=== PATIENT | male | born 1960 | race Caucasian/White ===

== ENCOUNTER 2019-08-20 09:59 | Outpatient (CLI) | payer OTHER, SELFPAY | END 2019-08-20 10:00 | disposition home or self-care (01) | LOC: CHSLAB 10:03 | PROVIDERS: PCP Internal Medicine; Visit Provider Specialist | DX: C44.329 Squamous cell carcinoma of skin of other parts of face (principal) | CPT/HCPCS: 88305 ==

== ENCOUNTER 2019-10-10 10:13 | Outpatient (CLI) | payer OTHER, SELFPAY ==
--- NOTE | 2019-10-10 11:00 | NEURO_ITS ---
Patient Number: [id number] Impression: # Complains of numbness of thumbs and pointing fingers. # Evolving Carpal Tunnel Syndrome bilaterally. # No ulnar neuropathy. # Normal needle/EMG exam. # Clinical correlation recommended. Nerve Conduction Studies Anti Sensory Summary Table Stim Site NR Peak (ms) P-T Amp (?V) Site1 Site2 Delta-P (ms) Dist (cm) Ranjit (m/s) Left Median Anti Sensory (2-3nd Digit) Wrist 3.6 25.5 Wrist 2-3nd Digit 3.6 14.0 39 Wrist 3.6 66.3 Wrist 2-3nd Digit 3.6 14.0 39 Right Median Anti Sensory (2-3nd Digit) Wrist 3.6 43.0 Wrist 2-3nd Digit 3.6 14.0 39 Wrist 4.3 27.9 Wrist 2-3nd Digit 3.6 14.0 39 Left Radial Anti Sensory (Base 1st Digit) Wrist 2.0 16.3 Wrist Base 1st Digit 2.0 0.0 Right Radial Anti Sensory (Base 1st Digit) Wrist 2.0 20.1 Wrist Base 1st Digit 2.0 0.0 Left Ulnar Anti Sensory (5th Digit) Wrist 2.4 52.4 Wrist 5th Digit 2.4 14.0 58 Right Ulnar Anti Sensory (5th Digit) Wrist 2.3 73.6 Wrist 5th Digit 2.3 14.0 61 Motor Summary Table Stim Site NR Onset (ms) O-P Amp (mV) Site1 Site2 Delta-0 (ms) Dist (cm) Ranjit (m/s) Left Median Motor (Abd Poll Brev) Wrist 3.8 2.5 Elbow Wrist 5.0 29.0 58 Elbow 8.8 4.6 Right Median Motor (Abd Poll Brev) Wrist 3.6 3.0 Elbow Wrist 5.2 29.0 56 Elbow 8.8 3.1 Left Ulnar Motor (Abd Dig Minimi) Wrist 2.5 9.8 A Elbow Wrist 5.2 31.0 60 A Elbow 7.7 7.7 Right Ulnar Motor (Abd Dig Minimi) Wrist 2.4 7.0 A Elbow Wrist 5.3 30.0 57 A Elbow 7.7 5.5 F Wave Studies NR F-Lat (ms) L-R F-Lat (ms) Left Median (Mrkrs) (Abd Poll Brev) 29.10 0.89 Right Median (Mrkrs) (Abd Poll Brev) 28.21 0.89 Left Ulnar (Mrkrs) (Abd Dig Min) 28.15 0.48 Right Ulnar (Mrkrs) (Abd Dig Min) 28.62 0.48 EMG Side Muscle Nerve Root Ins Act Fibs Amp Dur Recrt Comment Right 1stDorInt Ulnar C8-T1 Nml Nml Nml Nml Nml Right Ext Indicis Radial (Post Int) C7-8 Nml Nml Nml Nml Nml Right Ext Digitorum Radial (Post Int) C7-8 Nml Nml Nml Nml Nml Right BrachioRad Radial C5-6 Nml Nml Nml Nml Nml Right PronatorTeres Median C6-7 Nml Nml Nml Nml Nml Right Abd Poll Brev Median C8-T1 Nml Nml Nml Nml Nml Left 1stDorInt Ulnar C8-T1 Nml Nml Nml Nml Nml Left Ext Indicis Radial (Post Int) C7-8 Nml Nml Nml Nml Nml Left Ext Digitorum Radial (Post Int) C7-8 Nml Nml Nml Nml Nml Left BrachioRad Radial C5-6 Nml Nml Nml Nml Nml Left PronatorTeres Median C6-7 Nml Nml Nml Nml Nml Left Abd Poll Brev Median C8-T1 Nml Nml Nml Nml Nml MTDD
== END 2019-10-10 10:14 | disposition home or self-care (01) ==
LOC: ANHNEURO 10:20
PROVIDERS: PCP Internal Medicine; Visit Provider Plastic Surgery
DX: G56.03 Carpal tunnel syndrome, bilateral upper limbs (principal)
CPT/HCPCS: 95886; 95911

== ENCOUNTER 2020-02-17 11:28 | Outpatient (CLI) | payer OTHER, SELFPAY ==
[2020-02-17 12:38] LABS: SARS-CoV-2 Ag Negative (Negative)
== END 2020-02-17 11:29 | disposition home or self-care (01) ==
LOC: CHSLAB 11:30
PROVIDERS: PCP Internal Medicine; Visit Provider Internal Medicine
DX: Z20.828 Contact with and (suspected) exposure to other viral communicable diseases (principal)
CPT/HCPCS: 87426

== ENCOUNTER 2020-04-02 10:38 | Outpatient (CLI) | payer SELFPAY ==
--- NOTE | ~2020-04-02 | XR_ITS ---
EXAMINATION: XR sacroiliac joints min 3V INDICATION: Low back pain TECHNIQUE: Three views of the sacroiliac joints are obtained on four radiographs. COMPARISON: None available FINDINGS: Bone alignment is normal. There is no fracture. No abnormal sclerosis or erosion of the sac roiliac joints is identified. IMPRESSION: 1. . No radiographic correlate for the patient's symptoms. Reviewed, dictated and finalized at location A. ACTORY SPECIALIST
--- NOTE | ~2020-04-02 | XR_ITS ---
LUMBAR SPINE INDICATION: Low back pain TECHNIQUE: 3 views lumbar spine COMPARISON: None FINDINGS: No fracture, subluxation or dislocation. No evidence for spondylolysis or spondylolisthesi s. Vertebral bodies and disk spaces are preserved. IMPRESSION: 1: No acute abnormality of the lumbar spine identified. Reviewed, dictated and finalized at location B. ER BUTCHER
== END 2020-04-02 10:39 | disposition home or self-care (01) ==
LOC: CHSIMG 10:41
PROVIDERS: PCP Internal Medicine; Visit Provider Internal Medicine
DX: M54.5 Low back pain (principal)
CPT/HCPCS: 72100; 72202

== ENCOUNTER 2020-08-13 16:02 | Outpatient (CLI) | payer OTHER, SELFPAY ==
--- NOTE | ~2020-08-13 | XR_ITS ---
XR knee RT 3V 08/13/2020 16:27 INDICATION: Right knee pain PROCEDURE: 4 views right knee COMPARISON: No prior studies for comparison. FINDINGS: Fracture, dislocation or subluxation is not identified. No significant joint effusion. The soft tissues appear within normal limits. No foreign bodies are identified. IMPRESSION: 1: NO ACUTE BONE OR JOINT ABNORMALITY IDENTIFIED. Reviewed, dictated and finalized at location B.
== END 2020-08-13 16:03 | disposition home or self-care (01) ==
LOC: CHSIMG 16:06
PROVIDERS: PCP Internal Medicine; Visit Provider Nurse Practitioner Family
DX: M25.561 Pain in right knee (principal)
CPT/HCPCS: 73562

== ENCOUNTER 2020-08-14 10:19 | Outpatient (CLI) | payer OTHER, SELFPAY ==
--- NOTE | ~2020-08-14 | US_ITS ---
EXAMINATION:US venous doppler LE RT INDICATION:Elevated d-dimer TECHNIQUE: Multiple grayscale, color flow and Doppler images of the right lower extremity deep venous systems were obtained and reviewed. COMPARISON:No prior studies for comparison. FINDINGS: The common femoral, superficial femoral and popliteal veins demonstrate normal respiratory variation, augmentation and compressibility. Color flow is also seen within the posterior tibial, pe roneal, greater saphenous and profunda veins. There is a Wills's cyst cyst measuring 2.3 x 1.8 x 0.8 cm. IMPRESSION: 1: No lower extremity deep venous thrombosis. Reviewed, dictated and finalized at location B.
== END 2020-08-14 10:20 | disposition home or self-care (01) ==
LOC: CHSIMG 10:22
PROVIDERS: PCP Internal Medicine; Visit Provider Nurse Practitioner Family
DX: R79.1 Abnormal coagulation profile (principal)
CPT/HCPCS: 93971

== ENCOUNTER 2021-01-13 12:59 | Outpatient (CLI) | payer BC, SELFPAY ==
--- NOTE | 2021-01-13 13:20 | PC.NURSE ---
Pt to room 211 amb. A&Ox3. Regeneron consent read and signed. Extra printed material on Regeneron given to patient per his request. Orineted to room, call carter in reach. Reminded to call with needs.
[2021-01-13] MEDS: diphenhydrAMINE HCl CAP 25 MG CAPSULE PO (14:00)
[2021-01-13] MEDS: ACETAMINOPHEN 325 MG TABLET 650 MG PO (14:00)
[2021-01-13] MEDS: FAMOTIDINE 20 MG TABLET PO (14:00)
--- NOTE | 2021-01-13 15:25 | PC.NURSE ---
Pt has no complaints or concerns. Discharged to home amb per self.
== END 2021-01-13 13:00 | disposition home or self-care (01) ==
LOC: CHSTREATRM 13:07
PROVIDERS: PCP Internal Medicine; Visit Provider Internal Medicine
DX: U07.1 COVID-19 (principal); I10 Essential (primary) hypertension; J44.9 Chronic obstructive pulmonary disease, unspecified
CPT/HCPCS: A9270; J7050; M0243; Q0244

== ENCOUNTER 2021-01-22 09:02 | Outpatient (CLI) | payer BC, SELFPAY ==
--- NOTE | ~2021-01-22 | XR_ITS ---
EXAMINATION: XR chest 2V DATE: 01/22/2021 10:04 INDICATION: COVID positive with hemoptysis and right upper chest pain. TECHNIQUE: PA and lateral views of the chest were obtained. COMPARISON: Chest radiograph dated 05/30/2017 FINDINGS: Unchanged minimal linear discoid atelectasis/scarring in the lingular and/or right middle lobe. No ot her airspace opacities, pulmonary edema, pleural effusion or pneumothorax. The cardiomediastinal silh ouette is normal. Mild thoracic spondylosis. IMPRESSION: 1. No acute cardiopulmonary disease with stable appearance of minimal chronic atelectasis/scarring in the lingula and/or right middle lobe. Reviewed, dictated and finalized at location A. ITY INSPECTOR IMPRESSION: 1. No acute cardiopulmonary disease with stable appearance of minimal chronic a telectasis/scarring in the lingula and/or right middle lobe.
--- NOTE | 2021-01-22 09:11 | ED.ASTHMA ---
HPI - Asthma General Stated Complaint: COUGH CHEST PAIN Source: patient Mode of arrival: ambulatory Limitations: no limitations History of Present Illness HPI Narrative: a 60-year-old male a history of asthma on inhaled steroids and bronchodilators, dyslipidemia GERD tested positive for COVID on 01/11/2021. He started having symptoms from 01/13/2021. He had -- shortness of breath -- cough productive of bloody sputum which resolved after 3 days -- fever with chills and rigors. He had a T-max of 104?. He has been afebrile for -the past few days. -- Right upper chest wall pain. Pain is continuous and unrelated to breathing. Patient is a nonsmoker. He does have a fair amount of industrial exposure to dust including cold dust. No prior respiratory complaints. MD complaint: shortness of breath Onset (ago): day(s) ( Off and on for the past 10 days) Severity: mild Context: recent URI Associated symptoms: productive cough, chest pain and hemoptysis Asthma History: adult onset and history of frequent attacks Related Data Current Asthma Therapy: inhaled bronchodilator and inhaled steroid Home Medications Medication Instructions Recorded Confirmed fluticasone propion-salmeterol 1 inh INHALATION DAILY 01/22/21 01/22/21 [Advair Diskus] fluticasone propionate 1 spray INTRANASAL DAILY 01/22/21 01/22/21 Allergies Allergy/AdvReac Type Severity Reaction Status Date / Time cefuroxime Allergy Intermediate ABD PAIN Verified 02/11/16 12:59 /SEVERE DIARRHEA Review of Systems Review of Systems: All systems reviewed & are unremarkable except as noted in HPI and below Constitutional: Constitutional: Reports no additional constitutional complaints, Reports anorexia, Reports body ache(s) and Reports fatigue Eyes: Eyes: Reports as per HPI and Reports no additional eye complaints ENT: Reports system reviewed and no additional complaints, except as documented Cardiovascular: Cardiovascular: Reports as per HPI, Reports no additional cardiovascular complaints, Reports chest pain, Reports chest pain at rest, Reports dyspnea and Reports dyspnea on exertion Respiratory: Respiratory: Reports as per HPI, Reports no additional respiratory complaints, Reports cough, Reports hemoptysis and Reports excessive phlegm production Gastrointestinal: Gastrointestinal: Reports as per HPI and Reports no additional gastrointestinal complaints Genitourinary: Genitourinary: Reports no additional male genitourinary complaints Musculoskeletal: Musculoskeletal: Reports no additional musculoskeletal complaints Integumentary/Breasts: Skin/Breast: Reports system reviewed and no additional complaints, except as docu Neurologic: Reports system reviewed and no additional complaints, except as documented Psychiatric: Psychiatric: Reports no additional psychiatric complaints Endocrine: Endocrine: Reports no additional endocrine complaints Hematologic/Lymphatic: Hematologic/Lymphatic: Reports no additional hematologic/lymphatic complaints Allergic/Immunologic: Allergic/Immunologic: Reports no additional allergic/immunologic complaints PMFSH Past Medical History Medical History (Updated 01/22/21 @ 12:53 by Paolo Biggs MD) Fracture, facial bones Trigger finger Surgical History Surgical History (Updated 01/22/21 @ 12:53 by Paolo Biggs MD) H/O knee surgery Social History Social History (Updated 01/22/21 @ 12:53 by Paolo Biggs MD) Social History: nonsmoker nonalcoholic Exam Const: General: cooperative and healthy appearing HENMT: Head: normal to inspection, normocephalic and atraumatic Ears: hearing grossly normal bilaterally General nose exam: Normal external nose present Face and sinus: normal facial exam Mouth: Yes Normal oral and palatal mucosa present, Yes lip normal, Yes tongue normal, Yes Normal salivary glands and ducts present, Yes oropharynx normal and Yes moist mucous membranes Throat: posterior
[2021-01-22 10:18] LABS: Basophils Absolute Auto 0.03 K/mm3 (0.00-0.10); Basophils Percent Auto 0.3 % (0.0-1.0); Eosinophils Absolute Auto 0.11 K/mm3 (0.02-0.50); Eosinophils Percent Auto 1.3 % (1.0-6.0); Hematocrit 47.6 % (40.0-54.0); Hemoglobin 16.3 g/dL (14.0-18.0); Immature Granulocyte Absolute 0.04 K/mm3 (0.00-0.00); Immature Granulocyte Percent A 0.5 % (0.0-0.0); Lymphocytes Absolute Auto 2.14 K/mm3 (1.10-4.50); Lymphocytes Percent Auto 24.4 % (18.0-42.0); Mean Corpuscular HGB Conc 34.2 g/dL (32.0-36.0); Mean Corpuscular Hemoglobin 29.3 pg (27.0-31.0); Mean Corpuscular Volume 85.5 fL (78.0-102.0); Mean Platelet Volume 9.3 fl (8.7-11.0); Monocytes Percent Auto 11.4 % (2.0-11.0); Neutrophils Absolute Auto 5.5 K/mm3 (1.7-7.2); Neutrophils Percent Auto 62.1 % (50.0-70.0); Platelet Count Result 276 K/mm3 (150-420); Red Blood Count 5.57 M/mm3 (4.70-6.10); Red Cell Distribution Width 12.9 % (11.6-14.4); White Blood Count 8.8 K/mm3 (4.8-10.8)
[2021-01-22 10:39] LABS: Alanine Aminotransferase 72 U/L (16-63); Albumin Level 3.7 g/dL (3.4-5.0); Alkaline Phosphatase 125 U/L (46-116); Anion Gap 8 mmol/L (8-16); Aspartate Amino Transferase 29 U/L (15-37); Bilirubin,Total 0.5 mg/dL (0.00-1.00); Blood Urea Nitrogen 17 mg/dL (7-18); Calcium 9.1 mg/dL (8.5-10.1); Carbon Dioxide 30 mmol/L (21-32); Chloride 102 mmol/L (98-108); Estimated Glomerular Filt Rate > 60; Glucose 91 mg/dL (70-99); Osmolality Calculated 291 mOsm/kg (285-295); Sodium 140 mmol/L (136-145); Total Protein 7.9 g/dL (6.4-8.2)
[2021-01-22 10:47] LABS: D Dimer 0.65 mg/L (0.19-0.50)
--- NOTE | 2021-01-22 13:02 | ED.SOB ---
HPI - SOB/Dyspnea General Stated Complaint: COUGH CHEST PAIN Source: patient Mode of arrival: ambulatory Limitations: no limitations History of Present Illness HPI Narrative: 60-year-old male with a history of hypertension, dyslipidemia, asthma on bronchodilators and inhaled steroids tested positive for COVID on 01/11/2021. He was exposed to his who had COVID. The patient developed symptoms starting on 01/13/2021. He had -- cough productive of bloody sputum which resolved after 3-4 days. -- Shortness of breath which was worse with exertion. He continues to have ongoing shortness of breath. .-- Right-sided chest pain which is continuous and not related to breathing or coughing Which started 3 days ago. -- Fever with chills with a T-max of 104? which resolved after 3-4 days in view of his positive COVID diagnosis he received monoclonal antibodies on 01/13/2021. In view of his ongoing symptoms he was advised a chest x-ray, blood work and a D-dimer. His chest x-ray was noted to be unremarkable. The patient Related Data Home Medications Medication Instructions Recorded Confirmed fluticasone propion-salmeterol 1 inh INHALATION DAILY 01/22/21 01/22/21 [Advair Diskus] fluticasone propionate 1 spray INTRANASAL DAILY 01/22/21 01/22/21 Allergies Allergy/AdvReac Type Severity Reaction Status Date / Time cefuroxime Allergy Intermediate ABD PAIN Verified 02/11/16 12:59 /SEVERE DIARRHEA Review of Systems Review of Systems: All systems reviewed & are unremarkable except as noted in HPI and below Constitutional: Constitutional: Reports as per HPI, Reports body ache(s), Reports fatigue and Reports fever(s) Eyes: Eyes: Reports as per HPI and Reports no additional eye complaints ENT: Reports system reviewed and no additional complaints, except as documented Cardiovascular: Cardiovascular: Reports as per HPI and Reports chest pain ( persistent right-sided chest pain with no relation to breathing or cough) Respiratory: Respiratory: Reports cough, Reports hemoptysis and Reports dyspnea Gastrointestinal: Gastrointestinal: Reports as per HPI and Reports no additional gastrointestinal complaints Genitourinary: Genitourinary: Reports no additional male genitourinary complaints Musculoskeletal: Musculoskeletal: Reports myalgias Integumentary/Breasts: Skin/Breast: Reports system reviewed and no additional complaints, except as docu Neurologic: Reports system reviewed and no additional complaints, except as documented Psychiatric: Psychiatric: Reports no additional psychiatric complaints Endocrine: Endocrine: Reports no additional endocrine complaints Hematologic/Lymphatic: Hematologic/Lymphatic: Reports no additional hematologic/lymphatic complaints Allergic/Immunologic: Allergic/Immunologic: Reports no additional allergic/immunologic complaints PMFSH Past Medical History Medical History Fracture, facial bones Trigger finger Surgical History Surgical History H/O knee surgery Social History Social History Social History: nonsmoker nonalcoholic Exam Const: General: cooperative, healthy appearing and anxious HENMT: Head: normal to inspection and No palpable skull fracture present Ears: hearing grossly normal bilaterally General nose exam: Normal external nose present Face and sinus: normal facial exam and sinuses nontender Mouth: Yes Normal oral and palatal mucosa present Teeth and gingiva: dentition normal Throat: posterior oropharynx normal Eyes: General: appearance normal, both eyes and all related structures Neck: Neck: normal visual inspection and full ROM Chest: Chest palpation & inspection: normal inspection of the chest Resp: Effort & Inspection: normal respiratory effort Auscultation: clear to auscultation isela
[2021-01-22 14:31] LABS: Troponin I 4.3 ng/L (0.00-60.4)
== END 2021-01-22 09:03 | disposition home or self-care (01) ==
LOC: CHSLAB 09:36 → CHSED 11:22 → CHSLAB 11:22
PROVIDERS: Internal Medicine Critical Care Medicine; PCP Internal Medicine; Visit Provider Internal Medicine
DX: U07.1 COVID-19 (principal); R05.9 Cough, unspecified
CPT/HCPCS: 36415; 71046; 80053; 84484; 85025; 85380; J7120

== ENCOUNTER 2021-01-22 11:41 | Emergency (ER) | payer BC, SELFPAY ==
--- NOTE | ~2021-01-22 | CT_ITS ---
EXAMINATION: CTA chest PE protocol DATE: 01/22/2021 13:37 INDICATION: Hemoptysis. TECHNIQUE: Computed tomography angiography (CTA) of the chest was performed with 100 mL Omnipaque-350 intravenous contrast timed to evaluate the pulmonary arteries. Coronal maximum intensity projection 3D-reconstructions were created by the technologist. Automated exposure control and iterative reconst ruction technique were employed. The dose-length product was 383.08 mGy-cm. COMPARISON: Chest 2 views 01/22/2021 FINDINGS: The lungs demonstrate mild atelectasis. No pleural effusion. The heart size is normal. No p ericardial effusion. There is no pulmonary embolus. There is mild thoracic spondylosis. IMPRESSION: 1. No pulmonary embolus. Reviewed, dictated and finalized at location A. GRATION CASE WORKER IMPRESSION: 1. No pulmonary embolus.
[2021-01-22 12:10] VITALS: BP 153/75; PULSE 74; RESP 20; TEMP 36.3; O2SAT 97
[2021-01-22] MEDS: SODIUM CHLORIDE 0.9% IV 1,000 ML 999 ML IV CONT (13:15)
--- NOTE | 2021-01-22 14:26 | ECG_ITS ---
Measurements Intervals [place] Rate: 61 P: 42 AK: 218 QRS: -21 QRSD: 94 T: 23 QT: 395 QTc: 398 Interpretive Statements SINUS RHYTHM WITH FIRST DEGREE AV BLOCK DELAYED PRECORDIAL R/S TRANSITION BASELINE ARTIFACT- I, III, V1-V3 ABNORMAL ECG Electronically Signed On 01-22-2021 15:03:22 [employer]ENTY ONE DEALER by Med Baltazar D.O.
[2021-01-22 15:06] VITALS: BP 159/87; PULSE 75; RESP 20; TEMP 36.3; O2SAT 97
--- NOTE | 2021-01-22 15:13 | ER_ITS ---
HPI - SOB/Dyspnea General Stated Complaint: COUGH CHEST PAIN Source: patient Mode of arrival: ambulatory Limitations: no limitations History of Present Illness HPI Narrative: 60-year-old male with a history of hypertension, dyslipidemia, asthma on bronchodilators and inhaled steroids tested positive for COVID on 01/11/2021. He was exposed to his who had COVID. The patient developed symptoms starting on 01/13/2021. He had -- cough productive of bloody sputum which resolved after 3-4 days. -- Shortness of breath which was worse with exertion. He continues to have ongoing shortness of breath. .-- Right-sided chest pain which is continuous and not related to breathing or coughing Which started 3 days ago. -- Fever with chills with a T-max of 104? which resolved after 3-4 days in view of his positive COVID diagnosis he received monoclonal antibodies on 01/13/2021. In view of his ongoing symptoms he was advised a chest x-ray, blood work and a D-dimer. His chest x-ray was noted to be unremarkable. The patient Related Data Home Medications Medication Instructions Recorded Confirmed fluticasone propion-salmeterol 1 inh INHALATION DAILY 01/22/21 01/22/21 [Advair Diskus] fluticasone propionate 1 spray INTRANASAL DAILY 01/22/21 01/22/21 Allergies Allergy/AdvReac Type Severity Reaction Status Date / Time cefuroxime Allergy Intermediate ABD PAIN Verified 02/11/16 12:59 /SEVERE DIARRHEA Review of Systems Review of Systems: All systems reviewed & are unremarkable except as noted in HPI and below Constitutional: Constitutional: Reports as per HPI, Reports body ache(s), Reports fatigue and Reports fever(s) Eyes: Eyes: Reports as per HPI and Reports no additional eye complaints ENT: Reports system reviewed and no additional complaints, except as documented Cardiovascular: Cardiovascular: Reports as per HPI and Reports chest pain ( persistent right-sided chest pain with no relation to breathing or cough) Respiratory: Respiratory: Reports cough, Reports hemoptysis and Reports dyspnea Gastrointestinal: Gastrointestinal: Reports as per HPI and Reports no additional gastrointestinal complaints Genitourinary: Genitourinary: Reports no additional male genitourinary complaints Musculoskeletal: Musculoskeletal: Reports myalgias Integumentary/Breasts: Skin/Breast: Reports system reviewed and no additional complaints, except as docu Neurologic: Reports system reviewed and no additional complaints, except as documented Psychiatric: Psychiatric: Reports no additional psychiatric complaints Endocrine: Endocrine: Reports no additional endocrine complaints Hematologic/Lymphatic: Hematologic/Lymphatic: Reports no additional hematologic/lymphatic complaints Allergic/Immunologic: Allergic/Immunologic: Reports no additional allergic/immunologic complaints PMFSH Past Medical History Medical History Fracture, facial bones Trigger finger Surgical History Surgical History H/O knee surgery Social History Social History Social History: nonsmoker nonalcoholic Exam Const: General: cooperative, healthy appearing and anxious HENMT: Head: normal to inspection and No palpable skull fracture present Ears: hearing grossly normal bilaterally General nose exam: Normal external nose present Face and sinus: normal facial exam and sinuses nontender Mouth:
--- NOTE | 2021-01-22 15:13 | ER_ITS ---
This report was moved to the correct visit, [id number] on 01/25/21. Original re port was signed by Paolo Biggs MD 01/22/21 1331. HPI - SOB/Dyspnea General Stated Complaint: COUGH CHEST PAIN Source: patient Mode of arrival: ambulatory Limitations: no limitations History of Present Illness HPI Narrative: 60-year-old male with a history of hypertension, dyslipidemia, asthma on bronchodilators and inhaled steroids tested positive for COVID on 01/11/2021. He was exposed to his who had COVID. The patient developed symptoms starting on 01/13/2021. He had -- cough productive of bloody sputum which resolved after 3-4 days. -- Shortness of breath which was worse with exertion. He continues to have ongoing shortness of breath. .-- Right-sided chest pain which is continuous and not related to breathing or coughing Which started 3 days ago. -- Fever with chills with a T-max of 104? which resolved after 3-4 days in view of his positive COVID diagnosis he received monoclonal antibodies on 01/13/2021. In view of his ongoing symptoms he was advised a chest x-ray, blood work and a D-dimer. His chest x-ray was noted to be unremarkable. The patient Related Data Home Medications Medication Instructions Recorded Confirmed fluticasone propion-salmeterol 1 inh INHALATION DAILY 01/22/21 01/22/21 [Advair Diskus] fluticasone propionate 1 spray INTRANASAL DAILY 01/22/21 01/22/21 Allergies Allergy/AdvReac Type Severity Reaction Status Date / Time cefuroxime Allergy Intermediate ABD PAIN Verified 02/11/16 12:59 /SEVERE DIARRHEA Review of Systems Review of Systems: All systems reviewed & are unremarkable except as noted in HPI and below Constitutional: Constitutional: Reports as per HPI, Reports body ache(s), Reports fatigue and Reports fever(s) Eyes: Eyes: Reports as per HPI and Reports no additional eye complaints ENT: Reports system reviewed and no additional complaints, except as documented Cardiovascular: Cardiovascular: Reports as per HPI and Reports chest pain ( persistent right-sided chest pain with no relation to breathing or cough) Respiratory: Respiratory: Reports cough, Reports hemoptysis and Reports dyspnea Gastrointestinal: Gastrointestinal: Reports as per HPI and Reports no additional gastrointestinal complaints Genitourinary: Genitourinary: Reports no additional male genitourinary complaints Musculoskeletal: Musculoskeletal: Reports myalgias Integumentary/Breasts: Skin/Breast: Reports system reviewed and no additional complaints, except as docu Neurologic: Reports system reviewed and no additional complaints, except as documented Psychiatric: Psychiatric: Reports no additional psychiatric complaints Endocrine: Endocrine: Reports no additional endocrine complaints Hematologic/Lymphatic: Hematologic/Lymphatic: Reports no additional hematologic/lymphatic complaints Allergic/Immunologic: Allergic/Immunologic: Reports no additional allergic/immunologic complaints PMFSH Past Medical History Medical History Fracture, facial bones Trigger finger Surgical History Surgical History H/O knee surgery Social History Social History Social History: nonsmoker nonalcoholic Exam Const: General: cooperative, healthy appearing and anxious HENMT: Head: normal to inspection and No palpable skull fracture present Ears: hearing gr
== END 2021-01-22 15:22 | disposition home or self-care (01) ==
PROVIDERS: Emergency Provider Internal Medicine Critical Care Medicine; PCP Internal Medicine
DX: R07.9 Chest pain, unspecified (principal)
CPT/HCPCS: 71275; 93005; 96360; 99283; 99284; J7030; Q9967

== ENCOUNTER 2021-03-30 07:34 | Outpatient (CLI) | payer BC, SELFPAY ==
--- NOTE | ~2021-03-30 | US_ITS ---
EXAMINATION: US abdomen complete DATE: 03/30/2021 08:13 INDICATION: Abdominal pain TECHNIQUE: Multiple grayscale and Doppler ultrasound images of the abdomen were obtained. COMPARISON: None FINDINGS: Normal spleen measuring 9.5 cm in maximal length. The visualized mid to distal aorta is normal. The p roximal aorta and region of the pancreas are obscured by shadowing gas in the stomach and bowels. Kayla er has normal echogenicity and contour, with a smooth surface. No liver lesion identified. No intrahe patic biliary duct dilation suspected. Portal venous flow was seen in the hepatopetal, normal directi on and has normal Doppler waveform. Visualized proximal inferior vena cava is normal. The gallbladder is normal in appearance. There is no cholelithiasis. The common bile duct measures 5 mm, which is n ormal. Sonographic Galvez sign was reported as negative by the geometry teacher. There is normal renal con tour and echogenicity bilaterally. The right kidney measures 11.1 x 4.6 x 5.7 cm and the left 12.3 x 6.3 x 5.0 cm. There are no focal renal lesions identified. There is no hydronephrosis. IMPRESSION: 1. Normal abdominal ultrasound. Reviewed, dictated and finalized at location A. ENTRY OPERATOR
== END 2021-03-30 07:35 | disposition home or self-care (01) ==
PROVIDERS: PCP Nurse Practitioner Family; Visit Provider Nurse Practitioner Family
DX: R10.9 Unspecified abdominal pain (principal)
CPT/HCPCS: 76700

== ENCOUNTER → 2021-05-10 03:17 | Outpatient (CLI) | payer BC, SELFPAY ==
[2021-05-10 10:59] LABS: SARS-CoV-2 RNA PCR Negative
== END ==
PROVIDERS: PCP Nurse Practitioner Family; Visit Provider Internal Medicine Gastroenterology
DX: Z01.812 Encounter for preprocedural laboratory examination (principal); Z20.822 Contact with and (suspected) exposure to COVID-19
CPT/HCPCS: C9803; U0003; U0005

== ENCOUNTER 2021-05-13 00:20 | Day surgery (SDC) | payer BC, SELFPAY ==
[2021-04-29 14:37] VITALS: BMI 27.4
--- NOTE | 2021-05-11 09:10 | PC.NURSE ---
pt is scheduled for egd on may 13. he says he was instructed by dr garces to hold his omeprazole for a couple days prior to testing. he is co stomach pain and not sure if he can keep with holding meds. instructed him to call dr villa office for recommendations. voiced understanding
--- NOTE | 2021-05-11 15:22 | PC.NURSE ---
pt called this morning asking about holding medications prior to his egd. instructed him he needs to hold his meds moring of procedure. he states he was instructed by dr garces to hold his prilosec and he is very concerned he may have worsening pain. listened to pts concerns, advised him if he is havng significant pain that he would need to call and speak with dr villa office. pt states he had left a message for them earlier. insructed him he could take his anxiety med morning of procedure, just make sure to let anesthesia know. pt voiced understanding. pt had also called his md at [facility] and left messages. jayro, rn from [facility], called this afternoon and stated she had spoken with pt. states he is nervous re results of procedure as he has strong family hx of cancer. let her know had talked to pt earlier today and he was going to speak with dr villa office too.
--- NOTE | 2021-05-13 06:31 | P.PNAN_ITS ---
Anes - Initial Pre Proc Eval Procedure: Operation Date: 05/13/21 10:30 Proposed Procedures p Esophagogastroduodenoscopy - Howard Marlow MD Date/Time: 05/13/21 06:31 Surgeon: Howard Marlow MD Pre Op Diagnosis: epigastric pain Patient Data Age: 61 Gender: M Height: 1.73 m Weight: 81.8 kg Allergies Allergy/AdvReac Type Severity Reaction Status Date / Time cefuroxime Allergy Intermediate ABD PAIN Verified 05/13/21 09:25 /SEVERE DIARRHEA Home Medications Medication Instructions Recorded Confirmed Type fluticasone propion-salmeterol 1 inh INHALATION DAILY 01/22/21 05/13/21 History [Advair Diskus] fluticasone propionate 1 spray INTRANASAL DAILY 01/22/21 05/13/21 History dicyclomine 10 mg capsule 10 mg PO BID 04/13/21 05/13/21 History omeprazole 20 mg capsule,delayed 20 mg PO BID 04/13/21 05/13/21 History release Patient hx anesthesia problems: none Family hx anesthesia problems: none Results Review: All pre-operative results and documents have been reviewed as part of the pre-operative evaluation. [facility] Past Medical History Medical History (Updated 05/13/21 @ 06:31 by Berto Martínez DO) Asthma Dyslipidemia Fracture, facial bones GERD (gastroesophageal reflux disease) JOVANNI (obstructive sleep apnea) Trigger finger Surgical History Surgical History H/O knee surgery Social History Social History Social History: nonsmoker nonalcoholic Smoking status: Never smoker Alcohol intake: never Substance use: never Living arrangements: with family Spiritual care concerns: No Anes - Eval Final PreProcedure Day of Procedure 05/13/21 06:31 Patient weight: overweight Heart: regular rate and rhythm Lungs: clear to auscultation and normal air movement Airway: Mallampati scale class II Neurological: alert and oriented Last oral intake: >/= 8 hours ASA classification: III Emergent: no Anesthetic plan: proceed Anesthesia type and monitoring: general GIVS and standard monitoring Results Review: All pre-operative results and documents have been reviewed as part of the pre-operative evaluation. Informed Consent: The patient's anesthetic plan and its attendant risks and benefits were discussed with the patient/family/POA. Questions were solicited and answers provided to the satisfaction of the patient/family/POA.
[2021-05-13 09:26] VITALS: BP 141/80; PULSE 60; RESP 18; TEMP 37; O2SAT 100
[2021-05-13] MEDS: LACTATED RINGERS 1,000 ML 150 ML IV CONT (09:30)
--- NOTE | 2021-05-13 09:46 | PM.HPGS ---
History of Present Illness History of Present Illness Consent: Risks, benefits, and alternatives have been discussed and questions answered. Patient agrees to proceed with procedure. Chief complaint: epigastric pain Narrative: Sai Doherty is a 61 year old male who has had stomach issues all his life he places his hand across his abdomen stating that as long as he can remember, even as a child he would have pains. He remembers taking a green pill, probably Librax. More recently however beginning in early March, he developed right upper quadrant pain. He had a chicken sandwich for lunch and shortly afterwards had excessive belching that would not stop accompanied by right upper quadrant pain radiating to the back. He went to the pharmacy to get Janet-[place] which did not seem to help. The pain lasted for least 3 days continuously. He saw his primary care provider the following Monday and was prescribed Prilosec twice a day and dicyclomine twice a day. He is not sure if it has helped although his pain is more tolerable and no longer continuous. For 3 weeks he has had nothing to eat but crackers, applesauce and some soda. He has lost about 10 lb during this period of time and 20 lb in the last year. He has had no fever. His bowel movements have not changed significantly Review of Systems Review of Systems: All systems reviewed & are unremarkable except as noted in HPI and below PMFSH Past Medical History Medical History Asthma Dyslipidemia Fracture, facial bones GERD (gastroesophageal reflux disease) JOVANNI (obstructive sleep apnea) Trigger finger Surgical History Surgical History H/O knee surgery Social History Social History Social History: nonsmoker nonalcoholic Smoking status: Never smoker Alcohol intake: never Substance use: never Living arrangements: with family Spiritual care concerns: No Meds Home Medications and Allergies Home Medications Medication Instructions Recorded Confirmed Type fluticasone propion-salmeterol 1 inh INHALATION DAILY 01/22/21 05/13/21 History [Advair Diskus] fluticasone propionate 1 spray INTRANASAL DAILY 01/22/21 05/13/21 History dicyclomine 10 mg capsule 10 mg PO BID 04/13/21 05/13/21 History omeprazole 20 mg capsule,delayed 20 mg PO BID 04/13/21 05/13/21 History release Allergies Allergy/AdvReac Type Severity Reaction Status Date / Time cefuroxime Allergy Intermediate ABD PAIN Verified 05/13/21 09:25 /SEVERE DIARRHEA Vital Signs Vital Signs - 24 hr 05/13/21 09:26 Temperature 37.0 C Pulse Rate 60 Respiratory Rate 18 Blood Pressure 141/80 H Pulse Oximetry 100 Exam Const: General: alert Orientation/consciousness: patient oriented x3 Resp: Auscultation: clear to auscultation bilaterally Cardio: Rhythm: regular rhythm GI: GI Palp: Yes Soft to palpation and No Tenderness to palpation present (GI) Neuro: General: patient oriented x3 Assessment and Plan Assessment and plan (1) Epigastric pain: Code(s): R10.13 - Epigastric pain Status: Acute Assessment and Plan: EGD with possible biopsy or dilatation or cautery.
[2021-05-13] MEDS: BENZOCAINE (*SP) 60 ML SPRAY CAN (HURRICAINE) 1 SPRAY MUCOUS MEM (10:24)
[2021-05-13 10:33] VITALS: BP 144/78; PULSE 76; RESP 19; TEMP 37; O2SAT 100
[2021-05-13 10:43] VITALS: BP 136/81; PULSE 76; RESP 19; TEMP 37; O2SAT 100
[2021-05-13 10:53] VITALS: BP 156/88; PULSE 67; RESP 17; TEMP 37; O2SAT 100
== END 2021-05-13 11:04 | disposition home or self-care (01) ==
PROVIDERS: PCP Nurse Practitioner Family; Visit Provider Internal Medicine Gastroenterology
PROC: 0DJ08ZZ Inspection of Upper Intestinal Tract, Via Natural or Artificial Opening Endoscopic (ICD-10-PCS; CPT 43235; principal; 2021-05-13 10:30)
DX: K21.9 Gastro-esophageal reflux disease without esophagitis (principal); E78.5 Hyperlipidemia, unspecified; G47.33 Obstructive sleep apnea (adult) (pediatric); Z79.51 Long term (current) use of inhaled steroids
CPT/HCPCS: 43239; 88305; C9803; J2704; J7120; U0003; U0005

== ENCOUNTER 2021-06-03 10:09 | Outpatient (CLI) | payer BC, SELFPAY ==
--- NOTE | ~2021-06-03 | NM_ITS ---
EXAMINATION: NM hepatobiliary wo pharm DATE: 06/03/2021 12:23 INDICATION: Right upper quadrant abdominal pain. COMPARISON: Ultrasound 03/30/2021 TECHNIQUE: 5.0 mCi Tc-99m mebrofenin (Choletec) was administered intravenously. Scintigraphic images of the abdomen were obtained for one hour. Then, the patient drank 8 oz Ensure, and imaging was cont inued for 60 minutes. FINDINGS: There is normal clearance of radiotracer from the blood pool. There is homogeneous tracer u ptake by the liver. Activity progresses to the bowel and gallbladder. Gallbladder ejection fraction (GBEF) was 29%. Note that with this technique, normal GBEF >= 33%. IMPRESSION: 1. Low gallbladder ejection fraction, consistent with gallbladder dysfunction and/or chronic cholecy stitis. Reviewed, dictated and finalized at location A. IMPRESSION: 1. Low gallbladder ejection fraction, consistent with gallbladder dysfunction and/or chronic cholecystitis.
== END 2021-06-03 10:10 | disposition home or self-care (01) ==
LOC: ANHIMG 10:10
PROVIDERS: PCP Nurse Practitioner Family; Visit Provider Internal Medicine Gastroenterology
DX: R10.11 Right upper quadrant pain (principal)
CPT/HCPCS: 78226; A9537

== ENCOUNTER 2021-06-19 08:28 | Outpatient (CLI) | payer BC, SELFPAY ==
[2021-06-19 08:51] LABS: Basophils Absolute Auto 0.06 K/mm3 (0.00-0.10); Basophils Percent Auto 0.7 % (0.0-1.0); Eosinophils Absolute Auto 0.79 K/mm3 (0.02-0.50); Eosinophils Percent Auto 8.9 % (1.0-6.0); Hematocrit 49.3 % (40.0-54.0); Hemoglobin 16.5 g/dL (14.0-18.0); Immature Granulocyte Absolute 0.03 K/mm3 (0.00-0.00); Immature Granulocyte Percent A 0.3 % (0.0-0.0); Lymphocytes Absolute Auto 2.54 K/mm3 (1.10-4.50); Lymphocytes Percent Auto 28.7 % (18.0-42.0); Mean Corpuscular HGB Conc 33.5 g/dL (32.0-36.0); Mean Corpuscular Hemoglobin 28.8 pg (27.0-31.0); Mean Corpuscular Volume 86.2 fL (78.0-102.0); Mean Platelet Volume 9.4 fl (8.7-11.0); Monocytes Absolute Auto 0.82 K/mm3 (0.10-0.90); Monocytes Percent Auto 9.3 % (2.0-11.0); Neutrophils Absolute Auto 4.6 K/mm3 (1.7-7.2); Neutrophils Percent Auto 52.1 % (50.0-70.0); Platelet Count Result 265 K/mm3 (150-420); Red Blood Count 5.72 M/mm3 (4.70-6.10); Red Cell Distribution Width 12.9 % (11.6-14.4); White Blood Count 8.9 K/mm3 (4.8-10.8)
[2021-06-19 09:02] LABS: Add Urine Microscopic? NO; Appearance Urine Clear (Clear); Bilirubin Urine Negative (Negative); Blood Urine Negative (Negative); Color Urine Yellow (Yellow); Glucose Urine UA Negative (Negative); Ketones Urine Negative (Negative); Leukocyte Esterase Ur Negative LEU/UL (Negative); Nitrate Urine Negative (Negative); Protein Urine Negative (Negative); Urobilinogen Urine 0.2 mg/dL (0.2-1.0); pH Urine 6.5 (5.0-8.0)
[2021-06-19 09:34] LABS: Alanine Aminotransferase 29 U/L (16-63); Albumin Level 3.8 g/dL (3.4-5.0); Alkaline Phosphatase 151 U/L (46-116); Anion Gap 7 mmol/L (8-16); Aspartate Amino Transferase 13 U/L (15-37); Bilirubin,Total 0.6 mg/dL (0.00-1.00); Blood Urea Nitrogen 15 mg/dL (7-18); Calcium 9.3 mg/dL (8.5-10.1); Carbon Dioxide 30 mmol/L (21-32); Chloride 103 mmol/L (98-108); Cholesterol 226 mg/dL (0-200); Creatine Kinase 51 U/L (39-308); Estimated Glomerular Filt Rate > 60; Glucose 89 mg/dL (70-99); HDL Direct 44 mg/dL (40-60); LDL Cholesterol Calculated 160 mg/dL (<130); Osmolality Calculated 289 mOsm/kg (285-295); Potassium 4.2 mmol/L (3.5-5.1); Prostate Specific Antigen 4.7 ng/mL (< OR = 4.0); Sodium 140 mmol/L (136-145); Triglycerides 109 mg/dL (0-150)
== END 2021-06-19 08:29 | disposition home or self-care (01) ==
LOC: CHSLAB 08:29
PROVIDERS: PCP Internal Medicine; Visit Provider Internal Medicine
DX: E78.2 Mixed hyperlipidemia (principal); I10 Essential (primary) hypertension; N40.0 Benign prostatic hyperplasia without lower urinary tract symptoms
CPT/HCPCS: 36415; 80053; 80061; 81003; 82550; 84153; 85025

== ENCOUNTER 2022-01-20 10:31 | Emergency (ER) | payer BC, SELFPAY ==
[2022-01-20 10:42] VITALS: BP 170/97; PULSE 110; RESP 16; TEMP 36.8; O2SAT 96
[2022-01-20] MEDS: KETOROLAC 30 MG/ML VIAL (*BKC) IV PUSH (11:02)
[2022-01-20] MEDS: ONDANSETRON INJ 4 MG/2 ML VIAL IV PUSH (11:02)
[2022-01-20] MEDS: SODIUM CHLORIDE 0.9% IV 1,000 ML 999 ML IV CONT (11:03)
--- NOTE | 2022-01-20 11:14 | ED.HA ---
HPI - Headache General Chief Complaint: Headache Stated Complaint: HEADACHE,VOMITING,TEETH PAIN COVID + Time Seen by Provider: 01/20/22 10:50 Source: patient Mode of arrival: ambulatory Limitations: no limitations History of Present Illness HPI Narrative: this is a 61-year-old gentleman presents from his doctor's office after he was diagnosed with COVID with a headache with an episode of nausea and 1 episode of vomiting with no shortness of breath cough that is nonproductive no chest pain no fever chills no abdominal pain no diarrhea constipation. MD elicited complaint: headache Onset (ago): hour(s) Onset description: gradually Severity: mild Related Data Home Medications Medication Instructions Recorded Confirmed fluticasone 250 mcg-salmeterol 50 1 inh inhalation DAILY 01/22/21 01/20/22 mcg/dose blistr powdr for inhalation (Advair Diskus) fluticasone propionate 50 1 spray intranasal DAILY 01/22/21 01/20/22 mcg/actuation nasal spray,suspension dicyclomine 10 mg capsule 10 mg PO BID 04/13/21 01/20/22 omeprazole 20 mg capsule,delayed 20 mg PO BID 04/13/21 01/20/22 release Allergies Allergy/AdvReac Type Severity Reaction Status Date / Time cefuroxime Allergy Intermediate ABD PAIN Verified 01/20/22 10:47 /SEVERE DIARRHEA morphine AdvReac Intermediate Vomiting Verified 01/20/22 10:47 Review of Systems Review of Systems: All systems reviewed & are unremarkable except as noted in HPI and below PMFSH Past Medical History Medical History Asthma Dyslipidemia Fracture, facial bones GERD (gastroesophageal reflux disease) JOVANNI (obstructive sleep apnea) Trigger finger Surgical History Surgical History H/O knee surgery Family History Family History Father Bladder cancer Diabetes mellitus Mother Breast cancer Social History Social History Social History: nonsmoker nonalcoholic Smoking status: Never smoker Alcohol intake: never Substance use: never Substance use type: does not use 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 Gender identity (if verbalized by the patient): Male Spiritual care concerns: No Exam Const: General: healthy appearing and no acute distress Nutritional Appearance: well nourished HENMT: Head: normal to inspection Ears: external ears normal Face/Nose/Sinus: Normal external nose present Face and sinus: normal facial exam Mouth: Yes Normal oral and palatal mucosa present Eyes: Conjunctivae: conjunctivae normal Pupils: Equal, round and reactive pupils present EOM: EOMs intact bilaterally Neck: Neck: normal visual inspection Chest: Chest palpation & inspection: normal inspection of the chest Resp: Effort & Inspection: normal respiratory effort Cardio: Rate: regular rate Rhythm: regular rhythm GI: GI Palp: Yes Soft to palpation : General: Yes bladder normal to palpation Urinary Catheter: Urinary Catheter: patent and draining Back/Spine/Pelvis: Back: no CVA tenderness Skin: General skin exam: normal color Wounds: no wounds Neuro: General: patient oriented x3 Cranial nerves: Yes Nystagmus not present Extrem: General: normal to inspection Psych: Mental Status: mental status grossly normal Affect: normal affect Attitude: cooperative Course Course Emergency Course: Patient received IV fluids, 30mg IV Toradol, and IV Zofran symptoms have improved, reviewed patient's lab work. Vital Signs Vital signs: Vital Signs Temperature 36.8 C 01/20/22 10:42 Pulse Rate 110 H 01/20/22 10:42 Respiratory Rate 16 01/20/22 10:42 Blood Pressure 170/97 H 01/20/22 10:42 Pulse Oximetry 96 01/20/22 10:42 Oxygen Delivery Room Air 01/20/22 10:42 Temperature 36.8 C 01/20/22
[2022-01-20 11:22] LABS: Basophils Absolute Auto 0.03 K/mm3 (0.00-0.10); Basophils Percent Auto 0.3 % (0.0-1.0); Eosinophils Absolute Auto 0.01 K/mm3 (0.02-0.50); Eosinophils Percent Auto 0.1 % (1.0-6.0); Hematocrit 48.5 % (40.0-54.0); Hemoglobin 16.5 g/dL (14.0-18.0); Immature Granulocyte Absolute 0.06 K/mm3 (0.00-0.00); Immature Granulocyte Percent A 0.6 % (0.0-0.0); Lymphocytes Absolute Auto 0.43 K/mm3 (1.10-4.50); Lymphocytes Percent Auto 4.2 % (18.0-42.0); Mean Corpuscular Hemoglobin 29.3 pg (27.0-31.0); Mean Corpuscular Volume 86.1 fL (78.0-102.0); Mean Platelet Volume 8.9 fl (8.7-11.0); Monocytes Absolute Auto 1.16 K/mm3 (0.10-0.90); Monocytes Percent Auto 11.4 % (2.0-11.0); Neutrophils Absolute Auto 8.5 K/mm3 (1.7-7.2); Neutrophils Percent Auto 83.4 % (50.0-70.0); Platelet Count Result 200 K/mm3 (150-420); Red Blood Count 5.63 M/mm3 (4.70-6.10); Red Cell Distribution Width 13.2 % (11.6-14.4); White Blood Count 10.2 K/mm3 (4.8-10.8)
[2022-01-20 11:40] LABS: Alanine Aminotransferase 44 U/L (16-63); Albumin Level 3.8 g/dL (3.4-5.0); Alkaline Phosphatase 115 U/L (46-116); Anion Gap 8 mmol/L (8-16); Aspartate Amino Transferase 18 U/L (15-37); Bilirubin,Total 0.7 mg/dL (0.00-1.00); Blood Urea Nitrogen 16 mg/dL (7-18); Calcium 8.6 mg/dL (8.5-10.1); Carbon Dioxide 28 mmol/L (21-32); Chloride 103 mmol/L (98-108); Estimated Glomerular Filt Rate > 60; Glucose 109 mg/dL (70-99); Osmolality Calculated 290 mOsm/kg (285-295); Potassium 4.4 mmol/L (3.5-5.1); Sodium 139 mmol/L (136-145); Total Protein 7.6 g/dL (6.4-8.2)
[2022-01-20 12:37] VITALS: BP 135/86; PULSE 102; RESP 16; TEMP 36.1; O2SAT 97
== END 2022-01-20 12:42 | disposition home or self-care (01) ==
PROVIDERS: Emergency Provider Emergency Medicine; PCP Internal Medicine
DX: U07.1 COVID-19 (principal)
CPT/HCPCS: 36415; 80053; 85025; 96361; 96374; 96375; 99284; J1885; J2405; J7030

== ENCOUNTER 2023-07-29 07:40 | Outpatient (CLI) | payer BC, SELFPAY ==
[2023-07-29 08:21] LABS: Basophils Absolute Auto 0.04 K/mm3 (0.00-0.10); Basophils Percent Auto 0.5 % (0.0-1.0); Eosinophils Absolute Auto 0.29 K/mm3 (0.02-0.50); Eosinophils Percent Auto 3.4 % (1.0-6.0); Hematocrit 48.7 % (40.0-54.0); Immature Granulocyte Absolute 0.02 K/mm3 (0.00-0.00); Immature Granulocyte Percent A 0.2 % (0.0-0.0); Lymphocytes Absolute Auto 2.38 K/mm3 (1.10-4.50); Lymphocytes Percent Auto 27.8 % (18.0-42.0); Mean Corpuscular HGB Conc 32.9 g/dL (32-36); Mean Corpuscular Hemoglobin 28.1 pg (27.0-31.0); Mean Corpuscular Volume 85.6 fL (78.0-102.0); Mean Platelet Volume 9.2 fl (8.7-11.0); Monocytes Absolute Auto 0.91 K/mm3 (0.10-0.90); Monocytes Percent Auto 10.6 % (2.0-11.0); Neutrophils Absolute Auto 4.91 K/mm3 (1.70-7.20); Neutrophils Percent Auto 57.5 % (50.0-70.0); Platelet Count Result 248 K/mm3 (150-420); Red Blood Count 5.69 M/mm3 (4.70-6.10); Red Cell Distribution Width 13.3 % (11.6-14.4); White Blood Count 8.6 K/mm3 (4.8-10.8)
[2023-07-29 08:47] LABS: Alanine Aminotransferase 33 U/L (16-63); Albumin Level 3.7 g/dL (3.4-5.0); Alkaline Phosphatase 104 U/L (46-116); Anion Gap 8 mmol/L (4-12); Aspartate Amino Transferase 16 U/L (15-37); Bilirubin,Total 0.7 mg/dL (0.00-1.00); Blood Urea Nitrogen 16 mg/dL (7-18); Calcium 8.8 mg/dL (8.5-10.1); Carbon Dioxide 30 mmol/L (21-32); Chloride 100 mmol/L (98-108); Cholesterol 260 mg/dL (0-200); Creatine Kinase 41 U/L (39-308); Estimated Glomerular Filt Rate > 60; Glucose 92 mg/dL (70-99); HDL Direct 60 mg/dL (40-60); LDL Cholesterol Calculated 182 mg/dL (<130); Osmolality Calculated 287 mOsm/kg (285-295); Potassium 3.9 mmol/L (3.5-5.1); Prostate Specific Antigen 7.1 ng/mL (< OR = 4.0); Sodium 138 mmol/L (136-145); Total Protein 7.4 g/dL (6.4-8.2); Triglycerides 88 mg/dL (0-150)
[2023-07-29 10:33] LABS: Appearance Urine Clear (Clear); Bilirubin Urine Negative (Negative); Blood Urine Negative (Negative); Color Urine Yellow (Yellow); Glucose Urine UA Negative (Negative); Ketones Urine Negative (Negative); Leukocyte Esterase Ur Negative LEU/UL (Negative); Nitrate Urine Negative (Negative); Protein Urine Negative (Negative); Urobilinogen Urine 0.2 mg/dL (0.2-1.0); pH Urine 6.5 (5.0-8.0)
[2023-07-29 10:38] LABS: Add Urine Microscopic? NO
== END 2023-07-29 07:41 | disposition home or self-care (01) ==
LOC: CHSLAB 07:43
PROVIDERS: PCP Internal Medicine; Visit Provider Internal Medicine
DX: N39.0 Urinary tract infection, site not specified (principal); I10 Essential (primary) hypertension; E78.2 Mixed hyperlipidemia; Z12.5 Encounter for screening for malignant neoplasm of prostate
CPT/HCPCS: 36415; 80053; 80061; 81003; 82550; 84153; 85025; G0103

== ENCOUNTER 2023-12-04 01:02 | Day surgery (SDC) | payer BC, SELFPAY ==
[2023-11-22 14:15] VITALS: BMI 24.5
[2023-12-04 07:15] VITALS: BP 130/90; PULSE 92; RESP 16; TEMP 36.3; O2SAT 98
[2023-12-04] MEDS: LACTATED RINGERS 1,000 ML 150 ML IV CONT (07:26)
--- NOTE | 2023-12-04 07:37 | WPDANESEPPF ---
Anes - Initial Pre Proc Eval Procedure: Operation Date: 12/04/23 08:00 Proposed Procedures p Colonoscopy - Calvin Luna MD Date/Time: 12/04/23 07:37 Surgeon: Calvin Luna MD Pre Op Diagnosis: Diseases of anus/rectum Patient Data Age: 63 Gender: M Height: 1.73 m Weight: 69.5 kg Last Vital Signs Temp 36.3 C L 12/04/23 07:15 Pulse 92 12/04/23 07:15 Resp 16 12/04/23 07:15 BP 130/90 12/04/23 07:15 Pulse Ox 98 12/04/23 07:15 O2 Del Method Room Air 12/04/23 07:15 Allergies Allergy/AdvReac Type Severity Reaction Status Date / Time cefuroxime Allergy Intermediate ABD PAIN Verified 12/04/23 07:12 /SEVERE DIARRHEA morphine AdvReac Intermediate Vomiting Verified 12/04/23 07:12 Home Medications Medication Instructions Recorded Confirmed Type cocoa butter-shark liver oil 1 supp RECTAL BID PRN Rectal 11/22/23 12/04/23 History rectal suppository Discomfort fluticasone 250 mcg-salmeterol 50 1 inh inhalation BID 11/22/23 12/04/23 History mcg/dose blistr powdr for inhalation (Advair Diskus) Patient hx anesthesia problems: none Family hx anesthesia problems: none Results Review: All pre-operative results and documents have been reviewed as part of the pre-operative evaluation. 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 Informed Consent: The patient's anesthetic plan and its attendant risks and benefits were discussed with the patient/family/POA. Questions were solicited and answers provided to the satisfaction of the patient/family/POA.
--- NOTE | 2023-12-04 08:48 | PM.IMHP ---
H&P: HPI History of Present Illness Date/Time: 12/04/23 08:48 Chief Complaint: rectal pain Narrative: Patient was recently seen in our office, complaining of recurrent rectal pain. His last colonoscopy was in 2018, unremarkable. Review of Systems Review of Systems: All systems reviewed & are unremarkable except as noted in HPI and below PMFSH Past Medical History Medical History Asthma Dyslipidemia Fracture, facial bones GERD (gastroesophageal reflux disease) JOVANNI (obstructive sleep apnea) Trigger finger Surgical History Surgical History H/O knee surgery Family History Family History Father Bladder cancer Diabetes mellitus Mother Breast cancer Social History Social History Social History: nonsmoker nonalcoholic Smoking status: Never smoker Alcohol intake: never Substance use: never Substance use type: does not use Living arrangements: with family Occupation/Education: occupation 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 Gender identity (if verbalized by the patient): Male Spiritual care concerns: No Meds Home Medications and Allergies Home Medications Medication Instructions Recorded Confirmed Type cocoa butter-shark liver oil 1 supp RECTAL BID PRN Rectal 11/22/23 12/04/23 History rectal suppository Discomfort fluticasone 250 mcg-salmeterol 50 1 inh inhalation BID 11/22/23 12/04/23 History mcg/dose blistr powdr for inhalation (Advair Diskus) Allergies Allergy/AdvReac Type Severity Reaction Status Date / Time cefuroxime Allergy Intermediate ABD PAIN Verified 12/04/23 07:12 /SEVERE DIARRHEA morphine AdvReac Intermediate Vomiting Verified 12/04/23 07:12 Vital Signs Vital Signs - 24 hr 12/04/23 07:15 Temperature 97.3 F L Pulse Rate 92 Respiratory Rate 16 Blood Pressure 130/90 Pulse Oximetry 98 Oxygen Delivery Room Air Assessment and Plan Assessment and plan (1) Change in bowel habits: Code(s): R19.4 - Change in bowel habit Status: Acute (2) Rectal Pain: Code(s): K62.89 - Other specified diseases of anus and rectum Status: Acute Plan Patient deemed a good candidate for colonoscopy, will proceed.
[2023-12-04] MEDS: SIMETHICONE ORAL SUSPENSION 20 MG/0.3 ML 30 ML BOTTLE 0.6 ML IRRIGATION (09:08)
[2023-12-04 09:19] VITALS: BP 131/88; PULSE 79; RESP 18; O2SAT 98
[2023-12-04 09:29] VITALS: BP 149/96; PULSE 74; RESP 21; O2SAT 98
[2023-12-04 09:39] VITALS: BP 126/87; PULSE 68; RESP 19; O2SAT 98
== END 2023-12-04 09:52 | disposition home or self-care (01) ==
PROVIDERS: PCP Internal Medicine; Referring Provider Nurse Practitioner Family; Visit Provider Internal Medicine Gastroenterology
PROC: 0DJD8ZZ Inspection of Lower Intestinal Tract, Via Natural or Artificial Opening Endoscopic (ICD-10-PCS; CPT 45378; principal; 2023-12-04 08:00)
DX: K62.89 Other specified diseases of anus and rectum (principal); J45.909 Unspecified asthma, uncomplicated; E78.5 Hyperlipidemia, unspecified; K21.9 Gastro-esophageal reflux disease without esophagitis; G47.33 Obstructive sleep apnea (adult) (pediatric); Z79.51 Long term (current) use of inhaled steroids; Z98.890 Other specified postprocedural states; Z80.3 Family history of malignant neoplasm of breast; Z80.52 Family history of malignant neoplasm of bladder
CPT/HCPCS: 45378; J1100; J2003; J2405; J2704; J7120

== ENCOUNTER 2024-07-20 15:49 | Emergency (ER) | payer BC, SELFPAY ==
--- NOTE | ~2024-07-20 | XR_ITS ---
XR shoulder RT min 2V Ordering provider: Levi Gotti MD History: . Fall 8ft. onto back, Rt. shoulder pain limited ROM . Comparison: None. FINDINGS: BONES: No acute fracture or dislocation. JOINT SPACES: The acromioclavicular joint shows mild osteoarthritic changes. Changes seen in the supe rior glenoid cavity. Otherwise, The glenohumeral joint is normal. SOFT TISSUES: Normal. IMPRESSION: No acute osseous abnormality right shoulder. Reviewed, dictated and finalized at location A.
--- NOTE | ~2024-07-20 | CT_ITS ---
CT cervical spine wo con Ordering provider: Levi Gotti MD History: . Fall 8ft. onto back, possible head injury . Comparison: Technique: CT of the cervical spine was performed without contrast. Sagittal and coronal reformatted images were also obtained and reviewed. Automated exposure control and iterative reconstruction juaquin hnique were employed. The dose-length product was 166.77 mGy-cm. FINDINGS: VERTEBRAE: No subluxation or acute fracture. The occipital condyles are intact. DISC SPACES: Narrowing of the disc C5-C6 is noted. Uncovertebral joint osteoarthritic changes at the same level. PARASPINOUS SOFT TISSUES: Normal. IMPRESSION: No acute osseous abnormality cervical spine. Degenerative disc disease at the level of C5-C6 Reviewed, dictated and finalized at location A.
--- NOTE | ~2024-07-20 | CT_ITS ---
CT brain wo con Ordering provider: Levi Gotti MD History: 64 years Male with . Fall 8ft. onto back, possible head injury . Comparison: June 06, 2009 Technique: CT of the head without contrast. Radiation reduction technique utilized.The dose-length pr oduct was 605.33 mGy-cm. FINDINGS: BRAIN PARENCHYMA AND CSF SPACES: No midline shift, mass effect or hemorrhage. The brain parenchyma a nd CSF spaces are otherwise normal. VISUALIZED PARANASAL SINUSES: Well aerated. Postoperative changes in the anterior left maxillary wall . MASTOIDS: Well aerated. BONES: The bones appear intact. SOFT TISSUES: Visualized nasopharynx is normal. Superficial soft tissues are normal. IMPRESSION: No acute intracranial findings. Reviewed, dictated and finalized at location A.
[2024-07-20 15:50] VITALS: BP 162/98; PULSE 90; RESP 18; TEMP 36.5; O2SAT 99
--- OUTSIDE RECORDS SUMMARY | 2024-07-20 15:52 | XMS_ITS | Referral Summary ---
Author Organization [facility] [address] Address [address] [place] [address] Care Team Providers Care Drosser Name Role Phone Keegan Arrington MD Primary Care Provider + [phone] Terrell Ramos MD Unavailable [phone] Encounters Date Type Department Care Team Description 07/08/2024 Telephone [facility] Radiation Oncology [address] [facility] [place] [address] Crissy Lara RN 07/08/2024 Orders Only [facility] Radiation Oncology [address] [facility] [place] [address] Denton Brown MD Prostate cancer (HCC) (Primary Dx) 07/08/2024 Orders Only [facility] Radiation Oncology [address] [facility] [place] [address] Terrell Ramos MD Prostate cancer (HCC) (Primary Dx) 07/06/2024 Telephone [facility] Radiation Oncology [address] [facility] [place] [address] Terrell Ramos MD 07/03/2024 Orders Only [facility] Radiation Oncology [address] [place] [address] Terrell Ramos MD 06/27/2024 Telephone [facility] Radiation Oncology [address] [place] [address] Crissy Lara RN 06/27/2024 Orders Only [facility] Radiation Oncology [address] [place] [address] Terrell Ramos MD 06/26/2024 Completion of Therapy [facility] Radiation Oncology [address] [place] [address] Terrell Ramos MD Prostate cancer (HCC) (Primary Dx) 06/26/2024 Orders Only RAD ONC TREATMENTS Miscellaneous, Not In File 06/26/2024 6:43 AM CDT - 06/26/2024 11:59 PM CDT Hospital Encounter [facility] Radiation Oncology [address] [place] [address] Terrell Ramos MD Discharge Disposition: Discharge to home or self care 06/24/2024 Orders Only RAD ONC TREATMENTS Miscellaneous, Not In File 06/24/2024 6:54 AM CDT - 06/24/2024 11:59 PM CDT Hospital Encounter [facility] Radiation Oncology [address] [place] [address] Terrell Ramos MD Discharge Disposition: Discharge to home or self care 06/21/2024 Orders Only [facility] Radiation Oncology [address] [place] [address] Terrell Ramos MD 06/21/2024 Orders Only [facility] Radiation Oncology [address] [place] [address] Lyric Jarquin MD 06/21/2024 Documentation [facility] Radiation Oncology [address] [facility] [place] [address] Lyric Jarquin MD 06/21/2024 Orders Only RAD ONC TREATMENTS Miscellaneous, Not In File 06/21/2024 7:35 AM CDT - 06/21/2024 11:59 PM CDT Hospital Encounter [facility] Radiation Oncology [address] [place] [address] Terrell Ramos MD Discharge Disposition: Discharge to home or self care 06/19/2024 OTV [facility] Radiation Oncology [address] [place] [address] Tammie Hall MD Prostate cancer (HCC) (Primary Dx) 06/19/2024 Orders Only RAD ONC TREATMENTS Miscellaneous, Not In File 06/19/2024 7:30 AM CDT - 06/19/2024 11:59 PM CDT Hospital Encounter [facility] Radiation Oncology [address] [place] [address] Terrell Ramos MD Discharge Disposition: Discharge to home or self care 06/17/2024 Orders Only RAD ONC TREATMENTS Miscellaneous, Not In File 06/17/2024 8:54 AM CDT - 06/17/2024 11:59 PM CDT Hospital Encounter [facility] Radiation Oncology [address] [place] [address] Terrell Ramos MD Discharge Disposition: Discharge to home or self care 05/31/2024 9:35 PM CDT - 05/31/2024 11:59 PM CDT Hospital Encounter [facility] Radiation Oncology [address] [place] [address] Terrell Ramos MD Discharge Disposition: Discharge to home or self care 05/24/2024 12:34 PM CDT - 05/24/2024 11:59 PM CDT Hospital Encounter [facility] Radiation Oncology [address] [facility] [place] [address] Terrell Ramos MD Discharge Disposition: Discharge to home or self care 05/24/2024 11:39 AM CDT - 05/24/2024 11:59 PM CDT Hospital Encounter [facility] Radiation Oncology [address] [place] [address] [place] [address] Terrell Ramos MD Discharge Disposition: Discharge to home or self care 05/22/2024 8:30 AM CDT - 05/22/2024 11:59 PM CDT Hospital Encounter [facility] Radiation Oncology [address] [place] [address] Terrell Ramos MD Discharge Disposition: Discharge to home or self care 05/22/2024 8:30 AM CDT - 05/22/2024 10:10 AM CDT Surgery [facility] ([facility]) [address] [place] [address] Terrell Ramos MD PLACEMENT PROSTATE MARKER x4 and bioabsorbable balloon 05/22/2024 8:28 AM CDT Anesthesia Event [facility] ([facility]) [address] [place] [address] Levi Alonso MD Gardner, Kari Elizabeth, NP 05/22/2024 6:28 AM CDT - 05/22/2024 11:00 AM CDT Hospital Encounter [facility] ([facility]) [address] [place] [address] Terrell Ramos MD Discharge Disposition: Discharge to home or self care 05/17/2024 Orders Only [facility] Radiation Oncology [address] [place] [address] [place] [address] Shara Rivas RN 05/13/2024 Orders Only [facility] Radiation Oncology [address] [place] [address] ProviderVani MD 05/10/2024 Orders Only [facility] Radiation Oncology [address] [place] [address] Terrell Ramos MD Prostate cancer (HCC) (Primary Dx); Pre-operative laboratory examination 04/23/2024 1:30 PM ANTI TANK MISSILEMAN Consult [facility] Radiation Oncology [address] [place] [address] Terrell Ramos MD Prostate cancer (HCC) from Last 3 Months Allergies Active Allergy Reactions Criticality Noted Date Comments Cefuroxime Stomach upset Low 01/25/2024 Morphine Nausea & Vomiting Low 08/26/2004 Medications Breo Ellipta 200-25 mcg/dose diskus inhalerIndicati ons:Maintenance Therapy for Asthma Inhale 2 puffs therapeutic case manager before breakfast 10/31/19 24 Active albuterol HFA (PROVENTIL HFA,VENTOLIN HFA,PROAIR HFA) 90 mcg/actuation inhalerIndicati ons:Acute Asthma Attack Inhale 2 puffs every 6 (six) hours as needed for wheezing Last used around 01/2024 Active LORazepam (ATIVAN) 1 mg tabletIndicatio ns:anxiety Take 1 tablet (1 mg total) by mouth daily as needed for anxiety 04/02/19 25 Active ciprofloxacin (Cipro) 250 mg tabletIndicatio ns:Prophylaxis, Surgical 500 mg the night before the procedure then 250 mg twice a day for 4 days 10 tablet 05/22/19 25 Active dicyclomine (BENTYL) 20 mg tablet Take 1 tablet (20 mg total) by mouth every 6 (six) hours 120 tablet 11 07/04/19 25 026 Active hydrocortisone (ANUSOL-HC) 25 mg suppositoryIndi cations:Prostat e cancer (HCC) Insert 1 suppository (25 mg total) into the rectum 2 (two) times a day 12 suppository 07/09/19 25 Active tamsulosin (FLOMAX) 0.4 mg extended release capsuleIndicati ons:Prostate cancer (HCC) Take 1 capsule (0.4 mg total) by mouth 2 (two) times a day 60 capsule 07/09/19 25 Active hydrocortisone (ANUSOL-HC) 25 mg suppository Insert 1 suppository (25 mg total) into the rectum 2 (two) times a day for 7 days 14 suppository 06/22/19 25 025 Discontinu ed(Reorder ) hydrocortisone (ANUSOL-HC) 25 mg suppository Insert 1 suppository (25 mg total) into the rectum 2 (two) times a day for 7 days 14 suppository 06/28/19 25 025 hydrocortisone (ANUSOL-HC) 25 mg suppositoryIndi cations:Prostat e cancer (HCC) Insert 1 suppository (25 mg total) into the rectum 2 (two) times a day 12 suppository 07/09/19 25 025 Discontinu ed(Duplica te order) tamsulosin (FLOMAX) 0.4 mg extended release capsuleIndicati ons:Prostate cancer (HCC) Take 1 capsule (0.4 mg total) by mouth 2 (two) times a day 60 capsule 07/09/19 25 025 Discontinu ed(Duplica te order) Active Problems Problem Noted Date Diagnosed Date Prostate cancer 04/23/2024 Cancer Staging:Clinical stage from 02/01/2024:Stage IIB(cT2a, cN0, cM0, PSA: 9.6, Grade Group: 2) - Signed by Terrell Ramos MD on 04/23/2024 Elevated PSA 01/25/2024 Oral candidiasis 04/01/2021 Assessment & Plan (04/11/2021 2:57 PM ANTI TANK MISSILEMAN): Oral candidiasis, may have yogurt with activated cultures, will start him on nystatin swish and spit 500 1000 unit per 5 cc 1 cc swish and spit least 3 times a day for 7-10 days. Requests that he use a mild tooth paste, nothing with meera control or cecil at this time. Assessment & Plan (04/03/2021 9:55 PM ANTI TANK MISSILEMAN): Oral Nystatin Swish and Spit. 4 times a day. Plain tooth paste, soft tooth brush Medication reviewed with patient and use. Patient states understands. Uncomplicated asthma 03/31/2021 Assessment & Plan (04/11/2021 2:42 PM ANTI TANK MISSILEMAN): Continue with medication as ordered. No refills are needed at this time. States has been doing well with asthma. Note usually has more problems in the springtime. The see specialist in regards to this event. Assessment & Plan (03/31/2021 10:22 PM ANTI TANK MISSILEMAN): States has problems with asthma, which is intermittent and uncomplicated. Used Advair Diskus 250-50 for flairs. Also takes some OTC meds for allergies as needed. No has never smoked. Right upper quadrant pain 03/29/2021 Assessment & Plan (04/11/2021 2:54 PM ANTI TANK MISSILEMAN): At this time will set up for an ultrasound of the abdomen, emphasis to the right upper quadrant. Started on a bland diet, 6 small meals. No grease, high fat, sugar or alcohol at this time. Limit coffee may have finding green tea or room temp flat white soda This started months in generic Prilosec 20 mg b.i.d. If [facility] if pain gets worse, are worst pain he has ever had to go to the ER Advised patient of no ibuprofen type products her aspirin at this time. May take Tylenol if needed. No Pepto-Bismol at this time Will start on Bentyl 10 mg 2 times a day. Assessment & Plan (03/31/2021 10:24 PM ANTI TANK MISSILEMAN): States he has had some pain in the right upper abd. quad pain and discomfort. Note this pain does shift to the mid epigastric area. States he has a lot of burping and belching. Denies any burning in this area. Note is concerned about this problem because of his Mother and Father's cancer issue in which they from. LAB, CBC, CMP, UA today. Set up for Ultrasound of abdomin and pelvis. Light , low fat diet. NO grease or rich foods. Talked with patient about plan of care. Resolved Problems Problem Noted Date Diagnosed Date Resolved Date Excessive gas 03/31/2021 03/31/2021 Overview (03/31/2021): Talked about diet. States ate bar-be-que potato chips which were eaten before he started to have abdominal pain in the upper gastric area. States he has had a lot of gas. Bowel movements are varying in amount. States no diarrhea. Has had a lot of gas which makes him uncomfortable. Immunizations Immunization Administration Dates Next Due Influenza, Unspecified 04/01/2021(Deferr ed: Patient Refused),03/29/2021(Deferred: Patient Refused),03/29/2020(Deferred: Patient Refused) Pneumococcal Polysaccharide PPV23 09/23/2013,06/2008 Tdap 04/23/2012 Social History Tobacco Use Types Packs/Day Years Used Date Smoking Tobacco: Never Smokeless Tobacco: Never AUDIT-C Answer Date Recorded Q1: How often do you have a drink containing alcohol? Never 05/22/2024 Q2: How many drinks containi ng alcohol do you have on a typical day when you are drinking? Patient does not drink Q3: How often do you have si x or more drinks on one occasion? Never 05/22/2024 PHQ-2 Answer Date Recorded PHQ-2 Total Score 0 03/29/2021 Personal Safety Answer Date Recorded Have you ever been in or are you currently in a harmful physical or emotional relationship or is someone making you feel afraid or unsafe? Denies 05/22/2024 Sex and Gender Information Value Date Recorded Sex Assigned at Not on file Legal Sex Male 1:03 PM ANTI TANK MISSILEMAN Gender Identity Not on file Sexual Orientation Straight 12/13/2023 11 :51 AM CDT Last Filed Vital Signs Vital Sign Reading Time Taken Comments Blood Pressure 167/97 05/22/2024 10:40 AM CDT Pulse 67 05/22/2024 10:40 AM CDT Temperature 36.7 C (98.1 F) 05/22/2024 9:40 AM CDT Respiratory Rate 15 05/22/2024 10:40 AM CDT Oxygen Saturation 100% 05/22/2024 10:40 AM CDT Inhaled Oxygen Concentration - - Weight 71.2 kg (157 lb) 06/19/2024 8:59 AM CDT Height 172.7 cm (5' 8) 05/22/2024 7:24 AM CDT Body Mass Index 23.87 05/22/2024 7:24 AM CDT Plan of Treatment Not on file Procedures Procedure Name Priority Date/Time Associated Diagnosis Comments RAD ONC ARIA SESSION SUMMARY 06/26/2024 7:26 AM CDT RAD ONC ARIA SESSION SUMMARY 06/24/2024 7:35 AM CDT RAD ONC ARIA SESSION SUMMARY 06/21/2024 7:54 AM CDT RAD ONC ARIA SESSION SUMMARY 06/19/2024 8:21 AM CDT RAD ONC ARIA SESSION SUMMARY 06/17/2024 9:29 AM CDT AK AN PROCEDURE PLACEHOLDER Routine 05/22/2024 8:52 AM CDT AK AN ELECTIVE SUPRAGLOTTIC AIRWAY Routine 05/22/2024 8:52 AM CDT PLACEMENT PROSTATE MARKER 05/22/2024 8:32 AM CDT Prostate cancer (HCC) MISC PATH REFER Routine 05/13/2024 4:18 PM CDT REFLEXIVE URINE CULTURE Routine 05/13/2024 2:38 PM CDT URINALYSIS AND REFLEX TO MICROSCOPIC AND CULTURE Routine 05/13/2024 2:38 PM CDT Prostate cancer (HCC) Pre-operative laboratory examination PSA DIAGNOSTIC STAT 03/20/2024 2:23 PM ANTI TANK MISSILEMAN Examination of participant or control in clinical research from Last 3 Months or Most Recently Relevant to Health Maintenance Results * RAD ONC ARIA SESSION SUMMARY (06/26/2024 7:26 AM CDT) Course Name C1_Prostate_ 2024 ARIA Course Plan Date 05/24/2024 1:02 PM ARIA Elapsed Days 9 ARIA Treatment Start Date 06/17/2024 ARIA Treatment Site [id number]_4000 ARIA Dose Given To Date (cGy) 4,000 ARIA Session Dosage Given (cGy) 800 ARIA Plan ID SBRT PROSTATE ARIA Fractions Treated 5 ARIA Prescribed Dose Per Fraction (cGy) 800 ARIA Prescribed Total Dose (cGy) 4,000 ARIA 06/26/2024 7:26 AM CDT us Not In File Miscellaneous RADIATION ONCOLOGY ORD ERABLES Final Result CH[facility]I * RAD ONC ARIA SESSION SUMMARY (06/24/2024 7:35 AM CDT) Course Name [email or web address] ARIA Course Plan Date 05/24/2024 1:02 PM ARIA Elapsed Days 7 ARIA Treatment Start Date 06/17/2024 ARIA Treatment Site [id number]_4000 ARIA Dose Given To Date (cGy) 3,200 ARIA Session Dosage Given (cGy) 800 ARIA Plan ID SBRT PROSTATE ARIA Fractions Treated 4 ARIA Prescribed Dose Per Fraction (cGy) 800 ARIA Prescribed Total Dose (cGy) 4,000 ARIA 06/24/2024 7:35 AM CDT us Not In File Miscellaneous RADIATION ONCOLOGY ORD ERABLES Final Result CHIKI * RAD ONC ARIA SESSION SUMMARY (06/21/2024 7:54 AM CDT) Course Name [email or web address] ARIA Course Plan Date 05/24/2024 1:02 PM ARIA Elapsed Days 4 ARIA Treatment Start Date 06/17/2024 ARIA Treatment Site [id number]_4000 ARIA Dose Given To Date (cGy) 2,400 ARIA Session Dosage Given (cGy) 800 ARIA Plan ID SBRT PROSTATE ARIA Fractions Treated 3 ARIA Prescribed Dose Per Fraction (cGy) 800 ARIA Prescribed Total Dose (cGy) 4,000 ARIA 06/21/2024 7:54 AM CDT us Not In File Miscellaneous RADIATION ONCOLOGY ORD ERABLES Final Result ARIA * RAD ONC ARIA SESSION SUMMARY (06/19/2024 8:21 AM CDT) Course Name C1_Prostate_ 2024 ARIA Course Plan Date 05/24/2024 1:02 PM ARIA Elapsed Days 2 ARIA Treatment Start Date 06/17/2024 ARIA Treatment Site [id number]_4000 ARIA Dose Given To Date (cGy) 1,600 ARIA Session Dosage Given (cGy) 800 ARIA Plan ID SBRT PROSTATE ARIA Fractions Treated 2 ARIA Prescribed Dose Per Fraction (cGy) 800 ARIA Prescribed Total Dose (cGy) 4,000 ARIA 06/19/2024 8:21 AM CDT us Not In File Miscellaneous RADIATION ONCOLOGY ORD ERABLES Final Result Performing Organization Address [facility] de Phone Number ARIA * RAD ONC ARIA SESSION SUMMARY (06/17/2024 9:29 AM CDT) Course Name C1_Prostate_ 2024 ARIA Course Plan Date 05/24/2024 1:02 PM ARIA Elapsed Days 0 ARIA Treatment Start Date 06/17/2024 ARIA Treatment Site [id number]_4000 ARIA Dose Given To Date (cGy) 800 ARIA Session Dosage Given (cGy) 800 ARIA Plan ID SBRT PROSTATE ARIA Fractions Treated 1 ARIA Prescribed Dose Per Fraction (cGy) 800 ARIA Prescribed Total Dose (cGy) 4,000 ARIA 06/17/2024 9:29 AM CDT us Not In File Miscellaneous RADIATION ONCOLOGY ORD ERABLES Final Result ARIA * AK AN ELECTIVE SUPRAGLOTTIC AIRWAY, AK AN PROCEDURE PLACEHOLDER (05/22/2024 8:52 AM CDT) Narrative Rosario Montgomery CRNA - 05/22/2024 8:52 AM CDT Rosario Montgomery CRNA 05/22/2024 8:52 AM Airway Patient location: OR Urgency: elective Indications for airway management: anesthesia Difficult airway: no Staff: Supervising provider: Levi Alonso MD Placed by: ROCKET ENGINE COMPONENT MECHANIC: Rosario Montgomery CRNA Emergent airway documentation: Risks and benefits discussed: yes Consent obtained: yes Consent given by: patient Airway prep: Preoxygenated: yes Patient position: sniffing Mask difficulty assessment: 0 - not attempted Spontaneous ventilation during airway: absent Sedation level during airway: GA Final airway details: Final airway type: supraglottic airway Final supraglottic airway: IGel SGA size: 4 Number of attempts: 1 Levi Alonso MD ANESTHESIA ORDERABLES Cecily l Result * Misc Path Refer (05/13/2024 4:18 PM CDT) Historical Provider LAB BLOOD ORDERABLES Cecily l Result Performing Organization Address City/[facility]/ZIP Co de Phone Number EXTERNAL LAB * REFLEXIVE URINE CULTURE (05/13/2024 2:38 PM CDT) [facility]:NO CULTURE INDICATED 05/13/2024 2:38 PM CDT 05/13/2024 2:38 PM CDT Narrative [facility] - 05/14/2024 12:02 AM CDT FASTING:NO FASTING: NO Terrell Ramos MD LAB MICROBIOLOGY - GEN ERAL ORDERABLES Final Result Performing Organization Address City/[facility]/ZIP Co de Phone Number [facility] [address] [place] [address] * Urinalysis reflex to microscopic and culture Urine, clean voided (05/13/2024 2:38 PM CDT) Color, ur YELLOW YELLOW [facility] Appearance, ur CLEAR CLEAR [facility] Specific gravity 1.020 1.001 - 1.035 [facility] pH, ur 6.5 5.0 - 8.0 [facility] Glucose, ur NEGATIVE NEGATIVE [facility] Bilirubin, ur NEGATIVE NEGATIVE [facility] Ketones, ur NEGATIVE NEGATIVE [facility] Blood, ur NEGATIVE NEGATIVE [facility] Protein, ur, quant NEGATIVE NEGATIVE [facility] Nitrites, ur NEGATIVE NEGATIVE [facility] Leukocyte esterase, ur NEGATIVE NEGATIVE [facility] WBC, ur NONE SEEN < OR = 5 /HPF [facility] RBC, ur NONE SEEN < OR = 2 /HPF [facility] Epithelial cells, squamous, ur NONE SEEN < OR = 5 /HPF [facility] Bacteria, ur, quant NONE SEEN NONE SEEN /HPF [facility] Hyaline cast NONE SEEN NONE SEEN /LPF [facility] Note [facility] Comment: This urine was analyzed for the presence of WBC, RBC, bacteria, casts, and other formed elements. Only those elements seen were reported. Urine, clean voided 05/13/2024 2:38 PM CDT 05/13/2024 2:38 PM CDT Narrative [facility] - 05/14/2024 12:02 AM CDT FASTING:NO FASTING: NO Terrell Ramos MD LAB MICROBIOLOGY - GEN ERAL ORDERABLES Final Result [facility] [address] [place] [address] * PSA diagnostic (03/20/2024 2:23 PM ANTI TANK MISSILEMAN) PSA-Total 4.84 <=5.40 ng/mL Comment: Interpretive Data AGE SEX REFERENCE INTERVAL 0 minutes-150 years Female None 0 minutes-49 years Male None 50-59 years Male 0-3.90 60-69 years Male 0-5.40 70-79 years Male 0-6.20 80-150 years Male 0-6.20 The [employer] PSA Total assay procedure was used. Results from different manufacturers or methods may not be comparable. Serial testing should be performed using the same method. Current interpretive data last revised 21. Blood 03/20/2024 2:23 PM ANTI TANK MISSILEMAN 03/20/2024 2:30 PM ANTI TANK MISSILEMAN Narrative [facility] - 03/20/2024 3:05 PM ANTI TANK MISSILEMAN Do NOT bill pt. Research test, lab account [id number] Do NOT bill pt. Research test, lab account [id number] us Levi Lopes MD LAB BLOOD ORDERABLES Final Result [facility] Department [place] [address] from Last 3 Months or Most Recently Relevant to Health Maintenance Insurance [place] [facility] [place] [facility] [employer] [facility] ANTH ACCESS CHOICE Care Teams Drosser Relationship Specialty Start Date End Date Keegan Arrington MD [address] [place] [address] PCP - General Internal Medicine 11/07/23 Terrell Ramos MD [id number] [facility] # LL LL [id number] [place] [address] Radiation Oncologist Radiation Oncology 04/23/24
--- OUTSIDE RECORDS SUMMARY | 2024-07-20 15:52 | XMS_ITS ---
[facility] Organization [facility] Address [address] [place] [address] Care Team Providers Care Scheduling Assistant Name Role Phone Keegan Arrington MD Primary Care Provider + [phone] Terrell Ramos MD Unavailable [phone] Active Problems Problem Noted Date Diagnosed Date Prostate cancer 04/23/2024 Cancer Staging:Clinical stage from 02/01/2024:Stage IIB(cT2a, cN0, cM0, PSA: 9.6, Grade Group: 2) - Signed by Terrell Ramos MD on 04/23/2024 Elevated PSA 01/25/2024 Oral candidiasis 04/01/2021 Assessment & Plan (04/11/2021 2:57 PM PLASTIC FINISHER): Oral candidiasis, may have yogurt with activated cultures, will start him on nystatin swish and spit 500 1000 unit per 5 cc 1 cc swish and spit least 3 times a day for 7-10 days. Requests that he use a mild tooth paste, nothing with meera control or cecil at this time. Assessment & Plan (04/03/2021 9:55 PM PLASTIC FINISHER): Oral Nystatin Swish and Spit. 4 times a day. Plain tooth paste, soft tooth brush Medication reviewed with patient and use. Patient states understands. Uncomplicated asthma 03/31/2021 Assessment & Plan (04/11/2021 2:42 PM PLASTIC FINISHER): Continue with medication as ordered. No refills are needed at this time. States has been doing well with asthma. Note usually has more problems in the springtime. The see specialist in regards to this event. Assessment & Plan (03/31/2021 10:22 PM PLASTIC FINISHER): States has problems with asthma, which is intermittent and uncomplicated. Used Advair Diskus 250-50 for flairs. Also takes some OTC meds for allergies as needed. No has never smoked. Right upper quadrant pain 03/29/2021 Assessment & Plan (04/11/2021 2:54 PM PLASTIC FINISHER): At this time will set up for [...] day. Assessment & Plan (03/31/2021 10:24 PM PLASTIC FINISHER): States he has had some pain in [...] Talked with patient about plan of care. Current Treatment and Therapy Plans No current plan information found. Past Treatment and Therapy Plans No past plan information found. Current Radiation Episodes * Radiation Oncology - Radiation Therapy - March 2024Overview* First Treatment Date Latest Treatment Date Treatment Site Technique Goal Episode Provider 06/17/2024 06/26/2024 Terrell Ramos MD Treatment Courses* Course C1_Prostate_202406/17/2024 - 06/26/2024 Treatment Period Fraction Dose Fractions Total Dose Plans Planned SBRT PROSTATE 06/19/2024 - 06/26/2024 800 5 / 4,000 Reference Points Delivered PTV_4000 06/19/2024 - 06/26/2024 4,000 Radiation Treatments (No Episode) * Course C1_Prostate_202406/17/2024 - 06/17/2024 Treatment Period Energy Fraction Dose Fractions Total Dose Plans Planned SBRT PROSTATE 06/17/2024 - 06/17/2024 800 1 / 4,000 Reference Points Delivered PTV_4000 06/17/2024 - 06/17/2024 800 Resolved Problems Problem Noted Date Diagnosed Date [...]
--- OUTSIDE RECORDS SUMMARY | 2024-07-20 15:52 | XMS_ITS | Clinical Summary ---
[facility] Address [address] [place] [address] Care Team Providers Care Event Attendant Name Role Phone Keegan Arrington MD Primary Care Provider + [phone] Terrell Ramos MD Unavailable [phone] Allergies Active Allergy Reactions Criticality Noted Date Comments Cefuroxime Stomach upset Low 01/25/2024 Morphine Nausea & Vomiting Low 08/26/2004 Medications Breo Ellipta 200-25 mcg/dose diskus inhalerIndicati ons:Maintenance Therapy for Asthma Inhale 2 puffs mill beam fitter before breakfast 10/31/19 24 Active albuterol HFA [...] 04/01/2021 Assessment & Plan (04/11/2021 2:57 PM POULTRY AND FISH BUTCHER): Oral candidiasis, may have yogurt with activated cultures, will start him on nystatin swish and spit 500 1000 unit per 5 cc 1 cc swish and spit least 3 times a day for 7-10 days. Requests that he use a mild tooth paste, nothing with meera control or cecil at this time. Assessment & Plan (04/03/2021 9:55 PM POULTRY AND FISH BUTCHER): Oral Nystatin Swish and Spit. 4 times a day. Plain tooth paste, soft tooth brush Medication reviewed with patient and use. Patient states understands. Uncomplicated asthma 03/31/2021 Assessment & Plan (04/11/2021 2:42 PM POULTRY AND FISH BUTCHER): Continue with medication as ordered. No refills are needed at this time. States has been doing well with asthma. Note usually has more problems in the springtime. The see specialist in regards to this event. Assessment & Plan (03/31/2021 10:22 PM POULTRY AND FISH BUTCHER): States has problems with asthma, which is intermittent and uncomplicated. Used Advair Diskus 250-50 for flairs. Also takes some OTC meds for allergies as needed. No has never smoked. Right upper quadrant pain 03/29/2021 Assessment & Plan (04/11/2021 2:54 PM POULTRY AND FISH BUTCHER): At this time will set up for [...] day. Assessment & Plan (03/31/2021 10:24 PM POULTRY AND FISH BUTCHER): States he has had some pain in [...] lot of gas which makes him uncomfortable. Encounters Date Type Department Care Team Description 07/08/2024 Telephone [facility] Radiation Oncology [address] [facility] [place] [address] Crissy Lara RN 07/08/2024 Orders Only [facility] Radiation Oncology [address] [place] [address] Denton Brown MD Prostate cancer (HCC) (Primary Dx) 07/08/2024 Orders Only [facility] Radiation Oncology [address] [facility] [place] [address] Terrell Ramos MD Prostate cancer (HCC) (Primary Dx) 07/06/2024 Telephone [facility] Radiation Oncology [address] [facility] [place] [address] Terrell Ramos MD 07/03/2024 Orders Only [facility] Radiation Oncology [address] [facility] [place] [address] Terrell Ramos MD 06/27/2024 Telephone [facility] Radiation Oncology [address] [facility] [place] [address] Crissy Lara, ARNOLD 06/27/2024 Orders Only [facility] Radiation Oncology [address] [place] [address] Terrell Ramos MD 06/26/2024 6:43 AM CDT - 06/26/2024 11:59 PM CDT Hospital Encounter [facility] Radiation Oncology [address] [place] [address] Terrell Ramos MD Discharge Disposition: Discharge to home or self care 06/26/2024 Completion of Therapy [facility] Radiation Oncology [address] [place] [address] Terrell Ramos MD Prostate cancer (HCC) (Primary Dx) 06/26/2024 Orders Only RAD ONC TREATMENTS Miscellaneous, Not In File 06/24/2024 6:54 AM CDT - 06/24/2024 11:59 PM CDT Hospital Encounter [facility] Radiation Oncology [address] [place] [address] Terrell Ramos MD Discharge Disposition: Discharge to home or self care 06/24/2024 Orders Only RAD ONC TREATMENTS Miscellaneous, Not In File 06/21/2024 7:35 AM CDT - 06/21/2024 11:59 PM CDT Hospital Encounter [facility] Radiation Oncology [address] [place] [address] Terrell Ramos MD Discharge Disposition: Discharge to home or self care 06/21/2024 Orders Only [facility] Radiation Oncology [address] [place] [address] Terrell Ramos MD 06/21/2024 Orders Only [facility] Radiation Oncology [address] [place] [address] [place] [address] Lyric Jarquin MD 06/21/2024 Documentation [facility] Radiation Oncology [address] [place] [address] Lyric Jarquin MD 06/21/2024 Orders Only RAD ONC TREATMENTS Miscellaneous, Not In File 06/19/2024 7:30 AM CDT - 06/19/2024 11:59 PM CDT Hospital Encounter [facility] Radiation Oncology [address] [place] [address] Terrell Ramos MD Discharge Disposition: Discharge to home or self care 06/19/2024 OTV [facility] Radiation Oncology [address] [place] [address] Tammie Hall MD Prostate cancer (HCC) (Primary Dx) 06/19/2024 Orders Only RAD ONC TREATMENTS Miscellaneous, Not In File 06/17/2024 8:54 AM CDT - 06/17/2024 11:59 PM CDT Hospital Encounter [facility] Radiation Oncology [address] [place] [address] Terrell Ramos MD Discharge Disposition: Discharge to home or self care 06/17/2024 Orders Only RAD ONC TREATMENTS Miscellaneous, Not In File 05/31/2024 9:35 PM CDT - 05/31/2024 11:59 PM CDT Hospital Encounter [facility] Radiation Oncology [address] [place] [address] Terrell Ramos MD Discharge Disposition: Discharge to home or self care 05/24/2024 12:34 PM CDT - 05/24/2024 11:59 PM CDT Hospital Encounter [facility] Radiation Oncology [address] [place] [address] Terrell Ramos MD Discharge Disposition: Discharge to home or self care 05/24/2024 11:39 AM CDT - 05/24/2024 11:59 PM CDT Hospital Encounter [facility] Radiation Oncology [address] [facility] [place] [address] Terrell Ramos MD Discharge Disposition: Discharge to home or self care 05/22/2024 8:30 AM CDT - 05/22/2024 11:59 PM CDT Hospital Encounter [facility] Radiation Oncology [address] [facility] [place] [address] Terrell Ramos MD Discharge Disposition: Discharge to home or self care 05/22/2024 8:30 AM CDT - 05/22/2024 10:10 AM CDT Surgery [facility] ([facility]) [address] [place] [address] Terrell Ramos MD PLACEMENT PROSTATE MARKER x4 and bioabsorbable balloon 05/22/2024 8:28 AM CDT Anesthesia Event [facility] ([facility]) [address] [place] [address] Levi Alonso MD Gardner, Kari Elizabeth, NP 05/22/2024 6:28 AM CDT - 05/22/2024 11:00 AM CDT Hospital Encounter [facility] ([facility]) [address] [place] [address] Terrell Ramos MD Discharge Disposition: Discharge to home or self care 05/17/2024 Orders Only [facility] Radiation Oncology [address] [place] [address] Shara Rivas RN 05/13/2024 Orders Only [facility] Radiation Oncology [address] [place] [address] [place] [address] Vani Thomas MD 05/10/2024 Orders Only [facility] Radiation Oncology [address] [place] [address] Terrell Ramos MD Prostate cancer (HCC) (Primary Dx); Pre-operative laboratory examination 04/23/2024 1:30 PM POULTRY AND FISH BUTCHER Consult [facility] Radiation Oncology [address] [place] [address] Terrell Ramos MD Prostate cancer (HCC) from Last 3 Months Immunizations Immunization Administration Dates Next Due Influenza, Unspecified 04/01/2021(Deferr ed: Patient Refused),03/29/2021(Deferred: Patient Refused),03/29/2020(Deferred: Patient Refused) Pneumococcal Polysaccharide PPV23 09/23/2013,06/2008 Tdap 04/23/2012 Surgical History Surgery Date Site/Laterality Comments CHOLECYSTECTOMY 02/21/2020 - 02/19/2021 ROTATOR CUFF REPAIR 02/21/2020 - 02/19/2021 Left ANKLE SURGERY 02/20/2022 - 02/19/2023 Right TRIGGER FINGER RELEASE Bilateral multiple. last one around 11/2023 on left thumb HEMORRHOID SURGERY 02/20/2009 - 02/19/2010 hemorrhoidectomy Medical History Medical History Date Comments PONV (postoperative nausea and vomiting) Asthma Sleep apnea uses dental appl iance at night, no cpap Family History Medical History Relation Name Comments Heart disease Father Heart Disease - (Added by TW Conv) Breast cancer Mother Breast Cancer - (Added by TW Conv) Lung cancer Mother Malignant Neopl asm Bronchus and Lung - (Added by TW Conv) Anesthesia problems Neg Hx Relation Name Status Comments Father Mother Social History Tobacco Use Types Packs/Day Years [...] on file Legal Sex Male 1:03 PM POULTRY AND FISH BUTCHER Gender Identity Not on file Sexual Orientation Straight 12/13/2023 11 :51 AM CDT Obstetrics History Last Filed Vital Signs Vital Sign Reading [...] 05/22/2024 7:24 AM CDT Plan of Treatment Health Maintenance Due Date Last Done Comments Colon Cancer Screening-Colonoscopy 1961 Hepatitis C Screening 1961 Hepatitis B Screening 1979 Regular Well Visit/Exam 18-64 1979 Zoster Vaccine (1 of 2) 02/28/1980 Pneumococcal vaccine <65 (3 of 3 - PCV) 09/23/2014 0 09/23/2013, 11/24/2008 Depression Screening 03/29/2022 03/29/2021 DTaP/Tdap/Td Vaccine (2 - Td or Tdap) 04/23/202205/2012 Influenza Vaccine (Season Ended) 2024 Prostate Cancer Screening-PSA 03/20/2026 03/20/2024 Procedures Procedure Name Priority Date/Time Associated Diagnosis Comments RAD ONC ARIA SESSION SUMMARY 06/26/2024 7:26 AM CDT RAD ONC ARIA SESSION SUMMARY 06/24/2024 7:35 AM CDT RAD ONC ARIA SESSION SUMMARY 06/21/2024 7:54 AM CDT RAD ONC ARIA SESSION SUMMARY 06/19/2024 8:21 AM CDT RAD ONC ARIA SESSION SUMMARY 06/17/2024 9:29 AM CDT KS AN PROCEDURE PLACEHOLDER Routine 05/22/2024 8:52 AM CDT KS AN ELECTIVE SUPRAGLOTTIC AIRWAY Routine 05/22/2024 8:52 AM CDT PLACEMENT PROSTATE MARKER 05/22/2024 8:32 AM CDT Prostate cancer (HCC) MISC PATH REFER Routine 05/13/2024 4:18 PM CDT REFLEXIVE URINE CULTURE Routine 05/13/2024 2:38 PM CDT URINALYSIS AND REFLEX TO MICROSCOPIC AND CULTURE Routine 05/13/2024 2:38 PM CDT Prostate cancer (HCC) Pre-operative laboratory examination PSA DIAGNOSTIC STAT 03/20/2024 2:23 PM POULTRY AND FISH BUTCHER Examination of participant or control in clinical [...] ARIA * RAD ONC ARIA SESSION SUMMARY (06/24/2024 7:35 AM CDT) Course Name C1_Prostate_ 2024 ARIA [...] ORD ERABLES Final Result Performing Organization Address [facility] Co de Phone Number ARIA * RAD ONC ARIA SESSION SUMMARY (06/21/2024 [...] SUMMARY (06/19/2024 8:21 AM CDT) Course Name C1_Prostate2024 ARIA Course [...] ORD ERABLES Final Result Performing Organization Address [facility] de Phone Number CHIKI * RAD ONC ARIA SESSION SUMMARY (06/17/2024 [...] ORD ERABLES Final Result Performing Organization Address [facility] Phone Number CHIKI * KS AN ELECTIVE SUPRAGLOTTIC AIRWAY, KS AN PROCEDURE PLACEHOLDER (05/22/2024 8:52 AM CDT) Narrative Rosario Montgomery CRNA - 05/22/2024 8:52 AM CDT Rosario Montgomery CRNA 05/22/2024 8:52 AM Airway Patient location: OR Urgency: elective Indications for airway management: anesthesia Difficult airway: no Staff: Supervising provider: Levi Alonso MD Placed by: WEB SEARCH EVALUATOR: Rosario Montgomery CRNA Emergent airway documentation: Risks [...] Provider LAB BLOOD ORDERABLES Cecily l Result EXTERNAL LAB * REFLEXIVE URINE CULTURE (05/13/2024 2:38 PM CDT) Urine culture [facility] Comment:NO CULTURE INDICATED 05/13/2024 2:38 PM CDT 05/13/2024 2:38 PM CDT Narrative [facility] - 05/14/2024 12:02 AM CDT FASTING:NO FASTING: NO Terrell Ramos MD LAB MICROBIOLOGY - GEN ERAL ORDERABLES Final Result Performing Organization Address City/[facility]/ZIP Co de Phone Number [facility] [address] [place] [address] * Urinalysis reflex to microscopic and culture [...] quant NONE SEEN NONE SEEN /HPF [facility] Hyaline cast NONE SEEN NONE SEEN /LPF [facility] Note [facility] Comment: This urine was analyzed for the presence of WBC, RBC, bacteria, casts, and other formed elements. Only those elements seen were reported. Urine, clean voided 05/13/2024 2:38 PM CDT 05/13/2024 2:38 PM CDT Narrative [facility] - 05/14/2024 12:02 AM CDT FASTING:NO FASTING: NO Terrell Ramos MD LAB MICROBIOLOGY - GEN ERAL ORDERABLES Final Result Performing Organization Address City/[facility]/ZIP Co de Phone Number SANDR[facility] [address] [place] [address] * PSA diagnostic (03/20/2024 2:23 PM POULTRY AND FISH BUTCHER) PSA-Total 4.84 <=5.40 ng/mL Comment: Interpretive Data [...] last revised 21. Blood 03/20/2024 2:23 PM POULTRY AND FISH BUTCHER 03/20/2024 2:30 PM POULTRY AND FISH BUTCHER Narrative [facility] - 03/20/2024 3:05 PM POULTRY AND FISH BUTCHER Do NOT bill pt. Research test, lab account [id number] Do NOT bill pt. Research test, lab account [id number] Levi Lopes MD LAB BLOOD ORDERABLES Final Result Performing Organization Address City/[facility]/ZIP Co de Phone Number [facility] Department [place] [address] from Last 3 Months or Most Recently Relevant to Health Maintenance Insurance [place] [employer] [place] [facility] ACCESS CHOICE ANTHEM ACCESS CHOICE Care Teams Event Attendant Relationship Specialty Start Date End Date Keegan Arrington MD [address] [place] [address] PCP - General Internal Medicine 11/07/23 Terrell Ramos MD [address] [facility] [address] [place] [address] Radiation Oncologist Radiation Oncology 04/23/24
--- OUTSIDE RECORDS SUMMARY | 2024-07-20 15:52 | XMS_ITS | Encounter Summary ---
Author Organization [facility] Address 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
--- OUTSIDE RECORDS SUMMARY | 2024-07-20 15:52 | XMS_ITS | Clinical Summary ---
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
[2024-07-20] MEDS: KETOROLAC (*BKC) 60 MG/2 ML VIAL IM (16:14)
[2024-07-20 16:30] VITALS: BP 180/85; PULSE 75; RESP 18; O2SAT 98
[2024-07-20] MEDS: TETANUS,DIPHTHERIA,AC PERTUSSIS ADULT 0.5 ML (ADACEL) IM (17:16)
[2024-07-20 17:30] VITALS: BP 151/91; PULSE 79; RESP 16; O2SAT 98
[2024-07-20 18:30] VITALS: BP 151/87; PULSE 81; RESP 16; O2SAT 98
--- NOTE | 2024-07-20 18:39 | ED_ITS ---
HPI - Fall General Chief Complaint: Fall Stated Complaint: fall, right shoulder injury Source: patient and family Mode of arrival: ambulatory Limitations: no limitations History of Present Illness HPI Narrative: this is a 64-year-old male with no significant past medical history while on a step ladder fell about 8ft and causing head neck and right shoulder discomfort no other injuries noted patient did not lose consciousness no blurry vision no nausea vomiting no abdominal pain no chest pain no shortness of breath no fever chills no dysuria or hematuria. complaint: fall Onset (ago): hour(s) Fall from: other Fall witnessed: yes, by family Place fall occurred: home Loss of consciousness: none Prolonged down time: no Symptoms prior to fall: none Context: tripped/slipped Location of injury: head and neck Location of injury - extremities: Right: shoulder ( Tender with palpation and range of motion) Severity: moderate Severity scale (1-10): 8 Related Data Home Medications ?Medication ?Instructions ?Recorded ?Confirmed ?Last Taken ?Type cocoa butter-shark liver oil 1 supp RECTAL BID PRN Rectal 11/22/23 12/04/23 Unknown History rectal suppository Discomfort fluticasone 250 mcg-salmeterol 50 1 inh inhalation BID 11/22/23 12/04/23 12/04/23 History mcg/dose blistr powdr for inhalation (Advair Diskus) tamsulosin 0.4 mg capsule (Flomax) 0.4 mg PO DAILY 12/19/23 Unknown History Allergies Allergy/AdvReac Type Severity Reaction Status Date / Time cefuroxime Allergy Intermediate ABD PAIN Verified 07/20/24 15:58 /SEVERE DIARRHEA morphine AdvReac Intermediate Vomiting Verified 07/20/24 15:58 Review of Systems Review of Systems: All systems reviewed & are unremarkable except as noted in HPI and below PMFSH Past Medical History Medical History JOVANNI (obstructive sleep apnea) Fracture, facial bones Trigger finger GERD (gastroesophageal reflux disease) Dyslipidemia Asthma Surgical History Surgical History H/O knee surgery Family History Family History Father Bladder cancer Diabetes mellitus Mother Breast cancer Social History Social History Social History: nonsmoker nonalcoholic Smoking status: Never smoker Alcohol intake: never Substance use: never Substance use type: does not use Living arrangements: with family Occupation/Education: occupation 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 Gender identity (if verbalized by the patient): Male Spiritual care concerns: No Exam Const: General: healthy appearing and no acute distress Nutritional Appearance: well nourished Orientation/consciousness: patient oriented x3 Limitations: no limitations HENMT: Head: normal to inspection Face and sinus: normal facial exam Mouth: Yes Normal oral and palatal mucosa present Eyes: Conjunctivae: conjunctivae normal Pupils: Equal, round and reactive pupils present EOM: EOMs intact bilaterally Neck: Neck: normal visual inspection, no lymphadenopathy and no meningeal signs Other: tender with movement Chest: Chest palpation & inspection: normal inspection of the chest Resp: Effort & Inspection: normal respiratory effort Auscultation: clear to auscultation bilaterally Cardio: Rate: regular rate Rhythm: regular rhythm GI: GI Palp: Yes Soft to palpation Auscultation: normal bowel sounds : General: Yes bladder normal to palpation Urinary Catheter: Urinary Catheter: patent and draining Back/Spine/Pelvis: Back: no CVA tenderness Skin: General skin exam: normal color Rashes: no rashes Wounds: no wounds Neuro: General: patient oriented x3, moves all extremities, no meningeal signs and no focal motor deficits Extrem: Other: right shoulder discomfort with movement and palpation although has good range of motion radial pulse on the right intact no numbness or tingling. Course Course Emergency Course: Patient received Toradol and after reassessment pain level has improved CT scan of the brain and cervical spine without any acute bony abnormalities x-ray of the right shoulder nose shows no dislocations or fractures. Vital Signs Vital signs: Vital Signs Temperature 36.5 C 07/20/24 15:50 Pulse Rate 90 07/20/24 15:50 Respiratory Rate 18 07/20/24 15:50 Blood Pressure 162/98 H 07/20/24 15:50 Pulse Oximetry 99 07/20/24 15:50 Oxygen Delivery Room Air 07/20/24 15:50 Temperature 36.5 C 07/20/24 15:50 Pulse Rate 79 07/20/24 17:30 Respiratory Rate 16 07/20/24 17:30 Blood Pressure 151/91 H 07/20/24 17:30 Pulse Oximetry 98 07/20/24 17:30 Oxygen Delivery Room Air 07/20/24 17:30 Critical Care Time Critical Care Time Critical Care Time: No Discharge Plan Discharge Clinical Impression: Cervical strain, acute, Right shoulder strain Patient Disposition: Home Condition: Stable Instructions: Antibiotic Form, Muscle Strain (ED) Additional Instructions: advised patient to take medication as prescribed and follow-up with primary care physician Within the next 3 to 5 days for further evaluation. Patient Language: German Prescriptions: New naproxen 500 mg tablet 500 mg PO BID Qty: 14 0RF No Action tamsulosin [Flomax] 0.4 mg capsule 0.4 mg PO DAILY cyclobenzaprine 15 mg capsule,extended release 24hr 15 mg PO QHS Qty: 30 3RF fluticasone propion-salmeterol [Advair Diskus] 250-50 mcg/dose blister with device 1 inh INHALATION BID Preparation H Suppository 1 supp RECTAL BID PRN (Reason: Rectal Discomfort) cyclobenzaprine 7.5 mg tablet 7.5 mg PO BID 30 Days Qty: 60 2RF cyclobenzaprine 5 mg tablet 5 mg PO TID Qty: 90 2RF Follow-up/Referrals: Keegan Arrington MD [Primary Care Provider] - Time of Disposition: 18:44
[2024-07-20 19:05] VITALS: BP 142/80; PULSE 78; RESP 20; O2SAT 96
== END 2024-07-20 19:05 | disposition home or self-care (01) ==
PROVIDERS: Emergency Provider Emergency Medicine; PCP Internal Medicine
DX: S16.1XXA Strain of muscle, fascia and tendon at neck level, initial encounter (principal); S46.911A Strain of unspecified muscle, fascia and tendon at shoulder and upper arm level, right arm, initial encounter; W11.XXXA Fall on and from ladder, initial encounter; Z23 Encounter for immunization
CPT/HCPCS: 70450; 72125; 73030; 90471; 90715; 96372; 99284; J1885; L0150

== ENCOUNTER 2024-09-19 18:29 | Emergency (ER) | payer BC, SELFPAY ==
[2024-09-19 18:31] VITALS: BP 191/110; PULSE 106; RESP 18; TEMP 36.7; O2SAT 99
--- OUTSIDE RECORDS SUMMARY | 2024-09-19 18:32 | XMS_ITS ---
Author Organization [facility] Address [address] [place] [address] Care Team Providers Care Ballet Dancer Name Role Phone Keegan Arrington MD Primary Care Provider [phone] Terrell Ramos MD Unavailable [phone] Active Problems Problem Noted Date Diagnosed Date Traumatic tear of right rotator cuff 09/04/2024 Prostate cancer 04/23/2024 Cancer Staging:Clinical stage from 02/01/2024:Stage IIB(cT2a, cN0, cM0, PSA: 9.6, Grade Group: 2) - Signed by Terrell Ramos MD on 04/23/2024 Elevated PSA 01/25/2024 Oral candidiasis 04/01/2021 Assessment & Plan (04/11/2021 2:57 PM COMPUTER MECHANIC): Oral candidiasis, may have yogurt with activated cultures, will start him on nystatin swish and spit 500 1000 unit per 5 cc 1 cc swish and spit least 3 times a day for 7-10 days. Requests that he use a mild tooth paste, nothing with meera control or cecil at this time. Assessment & Plan (04/03/2021 9:55 PM COMPUTER MECHANIC): Oral Nystatin Swish and Spit. 4 times a day. Plain tooth paste, soft tooth brush Medication reviewed with patient and use. Patient states understands. Uncomplicated asthma 03/31/2021 Assessment & Plan (04/11/2021 2:42 PM COMPUTER MECHANIC): Continue with medication as ordered. No refills are needed at this time. States has been doing well with asthma. Note usually has more problems in the springtime. The see specialist in regards to this event. Assessment & Plan (03/31/2021 10:22 PM COMPUTER MECHANIC): States has problems with asthma, which is intermittent and uncomplicated. Used Advair Diskus 250-50 for flairs. Also takes some OTC meds for allergies as needed. No has never smoked. Right upper quadrant pain 03/29/2021 Assessment & Plan (04/11/2021 2:54 PM COMPUTER MECHANIC): At this time will set up for [...] day. Assessment & Plan (03/31/2021 10:24 PM COMPUTER MECHANIC): States he has had some pain in [...] Dose Plans Planned SBRT PROSTATE 06/17/2024 - 06/26/2024 800 5 / 4,000 Reference Points Delivered PTV_4000 06/17/2024 - 06/26/2024 4,000 Resolved Problems Problem Noted Date Diagnosed Date [...]
--- OUTSIDE RECORDS SUMMARY | 2024-09-19 18:32 | XMS_ITS | Clinical Summary ---
Author Organization [facility] B Address [address] [place] [address] Care Team Providers Care Automotive Mechanical Engineer Name Role Phone Keegan Arrington MD Primary Care Provider [phone] Terrell Ramos MD Unavailable [phone] Allergies Active Allergy Reactions Criticality Noted Date Comments Cefuroxime Stomach upset Low 01/25/2024 Morphine Nausea & Vomiting Low 08/26/2004 Oxycodone Nausea & Vomiting Low 09/19/2024 Medications Breo Ellipta 200-25 mcg/dose diskus inhalerIndication s:Maintenance Therapy for Asthma Inhale 2 puffs door hanger before breakfast 10/31/19 24 Active albuterol HFA (PROVENTIL HFA,VENTOLIN HFA,PROAIR HFA) 90 mcg/actuation inhalerIndication s:Acute Asthma Attack Inhale 2 puffs every 6 (six) hours as needed for wheezing or shortness of breath Has prescription, has not used Active tamsulosin (FLOMAX) 0.4 mg extended release capsuleIndication s:Prostate cancer (HCC) TAKE 1 CAPSULE BY MOUTH 2 TIMES A DAY. 60 capsule 08/06/19 25 Active Additional Information Patient taking differently:0.4 mg oral 2 times daily,Indications: benign prostatic hyperplasia with lower urinary tract sx, Informant: Self, Reported on 09/04/2024 cyclobenzaprine (FLEXERIL) 5 mg tabletIndications :Muscle Spasm Take 1 tablet (5 mg total) by mouth 3 (three) times a day as needed for muscle spasms 08/14/19 25 Active sildenafiL, pulm.hypertension , (REVATIO) 20 mg tabletIndications :Erectile Dysfunction Take 1-5 tablets ONE hour prior to activity on an empty stomach PRN 30 tablet 11 08/20/19 25 Active Additional Information Patient taking differently: 20 mg oral Daily PRN, ED, Take 1-5 tablets ONE hour prior to activity on an empty stomach PRN, Indications: Erectile Dysfunction, Informant: Self, Reported on 09/04/2024 acetaminophen (TYLENOL) 500 mg tablet Take 2 tablets (1,000 mg total) by mouth every 6 (six) hours 60 tablet 1 09/17/19 25 Active oxyCODONE (ROXICODONE) 5 mg immediate release tabletIndications :Pain Take 1 tablet (5 mg total) by mouth every 4 (four) hours as needed for pain 30 tablet 09/17/19 25 Active ondansetron ODT (ZOFRAN-ODT) 4 mg disintegrating tabletIndications :Prevention of Post-Operative Nausea and Vomiting Take 1 tablet (4 mg total) by mouth every 8 (eight) hours as needed for nausea 20 tablet 09/17/19 25 Active ketorolac (TORADOL) 10 mg tabletIndications :Postoperative Acute Pain Take 1 tablet (10 mg total) by mouth every 6 (six) hours as needed for pain for up to 5 days 20 tablet 09/20/19 25 025 Active LORazepam (ATIVAN) 1 mg tabletIndications :anxiety Take 1 tablet (1 mg total) by mouth daily as needed for anxiety 04/02/19 25 025 Disconti nued(The rapy complete d) ciprofloxacin (Cipro) 250 mg tabletIndications :Prophylaxis, Surgical 500 mg the night before the procedure then 250 mg twice a day for 4 days 10 tablet 05/22/19 25 025 Disconti nued(The rapy complete d) dicyclomine (BENTYL) 20 mg tablet Take 1 tablet (20 mg total) by mouth every 6 (six) hours 120 tablet 11 07/04/19 25 07/16/2 025 Disconti nued(The rapy complete d) hydrocortisone (ANUSOL-HC) 25 mg suppositoryIndica tions:Prostate cancer (HCC) Insert 1 suppository (25 mg total) into the rectum 2 (two) times a day 12 suppository 07/09/19 25 025 Disconti nued(The rapy complete d) celecoxib (CeleBREX) 200 mg capsuleIndication s:Postoperative Acute Pain Take 1 capsule (200 mg total) by mouth 2 (two) times a day for 15 days 30 capsule 09/17/19 25 025 Disconti nued(Oth er) Active Problems Problem Noted Date Diagnosed Date Traumatic tear of right rotator cuff 09/04/2024 Prostate cancer 04/23/2024 Cancer Staging:Clinical stage from 02/01/2024:Stage IIB(cT2a, cN0, cM0, PSA: 9.6, Grade Group: 2) - Signed by Terrell Ramos MD on 04/23/2024 Elevated PSA 01/25/2024 Oral candidiasis 04/01/2021 Assessment & Plan (04/11/2021 2:57 PM FROZEN MEAT CUTTER): Oral candidiasis, may have yogurt with activated cultures, will start him on nystatin swish and spit 500 1000 unit per 5 cc 1 cc swish and spit least 3 times a day for 7-10 days. Requests that he use a mild tooth paste, nothing with meera control or cecil at this time. Assessment & Plan (04/03/2021 9:55 PM FROZEN MEAT CUTTER): Oral Nystatin Swish and Spit. 4 times a day. Plain tooth paste, soft tooth brush Medication reviewed with patient and use. Patient states understands. Uncomplicated asthma 03/31/2021 Assessment & Plan (04/11/2021 2:42 PM FROZEN MEAT CUTTER): Continue with medication as ordered. No refills are needed at this time. States has been doing well with asthma. Note usually has more problems in the springtime. The see specialist in regards to this event. Assessment & Plan (03/31/2021 10:22 PM FROZEN MEAT CUTTER): States has problems with asthma, which is intermittent and uncomplicated. Used Advair Diskus 250-50 for flairs. Also takes some OTC meds for allergies as needed. No has never smoked. Right upper quadrant pain 03/29/2021 Assessment & Plan (04/11/2021 2:54 PM FROZEN MEAT CUTTER): At this time will set up for [...] day. Assessment & Plan (03/31/2021 10:24 PM FROZEN MEAT CUTTER): States he has had some pain in [...] Encounters Date Type Department Care Team Description 09/19/2024 Documentation Orthopaedic Surgery Marika Chavez MD 09/16/2024 9:00 AM CDT - 09/16/2024 11:15 AM CDT Surgery [facility] Surgery at [address] [address] David Casey MD RIGHT SHOULDER ARTHROSCOPIC ROTATOR CUFF REPAIR 09/16/2024 8:55 AM CDT Anesthesia Event [facility] Surgery at [address] [address] Rony Tamez MD Gangloff, Kerry Marie, NP 09/16/2024 7:51 AM CDT - 09/16/2024 11:49 AM CDT Hospital Encounter [facility] Surgery at [address] [address] David Casey MD Traumatic complete tear of right rotator cuff, sequela (Primary Dx) Discharge Disposition: Discharge to home or self care 09/12/2024 Telephone [facility] Orthopaedic Surgery [address] [facility] 1st Floor [address] [place] [address] David Casey MD 09/05/2024 Documentation [facility] Surgery [address] [place] [address] Afia De La Torre 09/04/2024 Orders Only [facility] Orthopaedic Surgery [address] [place] [address] 1[address] Floor [address] [place] [phone] David Casey MD Traumatic tear of right rotator cuff, unspecified tear extent, subsequent encounter (Primary Dx) 09/03/2024 1:48 PM CDT - 09/03/2024 11:59 PM CDT Hospital Encounter [facility] [address] [place] [address] Discharge Disposition: Discharge to home or self care 09/03/2024 1:47 PM CDT - 09/03/2024 11:59 PM CDT Hospital Encounter [facility] [address] [place] [address] Discharge Disposition: Discharge to home or self care 09/03/2024 1:00 PM CDT Office Visit [facility] Orthopaedic Surgery [address] [facility] 1st Floor [address] [place] [address] David Casey MD Traumatic complete tear of right rotator cuff, initial encounter (Primary Dx) 08/19/2024 10:40 AM CDT Office Visit [facility] [address] [facility] [address] [place] [address] Rudy Gottlieb NP Erectile dysfunction following radiation therapy (Primary Dx); Peyronie's disease 08/12/2024 11:30 AM CDT Office Visit [facility] Radiation Oncology [address] [place] [address] Terrell Ramos MD Prostate cancer (HCC) (Primary Dx) 07/08/2024 Telephone [facility] Radiation Oncology [address] [facility] [place] [address] Crissy Lara RN 07/08/2024 Orders Only [facility] Radiation Oncology [address] [place] [address] Denton Brown MD Prostate cancer (HCC) (Primary Dx) 07/08/2024 Orders Only [facility] Radiation Oncology [address] [place] [address] Terrell Ramos MD Prostate cancer (HCC) (Primary Dx) 07/06/2024 Telephone [facility] Radiation Oncology [address] [place] [address] Terrell Ramos MD 07/03/2024 Orders Only [facility] Radiation Oncology [address] [place] [address] Terrell Ramos MD 06/27/2024 Telephone [facility] Radiation Oncology [address] [facility] [place] [address] Crissy Lara RN 06/27/2024 Orders Only [facility] Radiation Oncology [address] [facility] [place] [address] Terrell Ramos MD 06/26/2024 6:43 AM CDT - 06/26/2024 11:59 PM CDT Hospital Encounter [facility] Radiation Oncology [address] [place] [address] Terrell Ramos MD Discharge Disposition: Discharge to home or self care 06/26/2024 Completion of Therapy [facility] Radiation Oncology [address] [place] [address] Terrell Ramos MD Prostate cancer (HCC) (Primary Dx) 06/26/2024 Orders Only RAD ONC TREATMENTS Miscellaneous, Not In File 06/24/2024 6:54 AM CDT - 06/24/2024 11:59 PM CDT Hospital Encounter [facility] Radiation Oncology [address] [place] [address] Terrell Ramos MD Discharge Disposition: Discharge to home or self care 06/24/2024 Orders Only RAD ONC TREATMENTS Miscellaneous, Not In File 06/21/2024 7:35 AM CDT - 06/21/2024 11:59 PM CDT Hospital Encounter [facility] Radiation Oncology [address] [place] [address] Terrell Ramos MD Discharge Disposition: Discharge to home or self care 06/21/2024 Orders Only [facility] Radiation Oncology [address] [place] [address] Terrell Ramos MD 06/21/2024 Orders Only [facility] Radiation Oncology [address] [place] [address] Lyric Jarquin MD 06/21/2024 Documentation [facility] Radiation Oncology [address] [place] [address] Lyric Jarquin MD 06/21/2024 Orders Only RAD ONC TREATMENTS Miscellaneous, Not In File 06/19/2024 7:30 AM CDT - 06/19/2024 11:59 PM CDT Hospital Encounter [facility] Radiation Oncology [address] [place] [address] Terrell Ramos MD Discharge Disposition: Discharge to home or self care 06/19/2024 OTV [facility] Radiation Oncology [address] [place] [address] Tammie Hall MD Prostate cancer (HCC) (Primary Dx) 06/19/2024 Orders Only RAD ONC TREATMENTS Miscellaneous, Not In File from Last 3 Months Immunizations Immunization Administration Dates Next Due Influenza, Unspecified 04/01/2021(Deferr ed: Patient Refused),03/29/2021(Deferred: Patient Refused),03/29/2020(Deferred: Patient Refused) Pneumococcal Polysaccharide PPV23 09/23/2013,06/2008 Tdap 04/23/2012 Surgical History Surgery Date Site/Laterality Comments CHOLECYSTECTOMY 02/21/2020 - 02/19/2021 ROTATOR CUFF REPAIR 02/21/2020 - 02/19/2021 Left ANKLE SURGERY 02/20/2022 - 02/19/2023 Right TRIGGER FINGER RELEASE 11/21/2023 - 12/21/2023 Left multiple. last one around 11/2023 on left thumb HEMORRHOID SURGERY 02/20/2009 - 02/19/2010 hemorrhoidectomy PROSTATE BIOPSY 02/01/2024 PROSTATE SURGERY 05/22/2024 placement prostate markers Medical History Medical History Date Comments PONV [...] you have a drink containing alcohol? Never 09/16/2024 Q2: How many drinks containi ng alcohol do you have on a typical day when you are drinking? Patient does not drink Q3: How often do you have si x or more drinks on one occasion? Never 09/16/2024 PHQ-2 Answer Date Recorded PHQ-2 Total Score 0 03/29/2021 Personal Safety Answer Date Recorded Have you ever been in or are you currently in a harmful physical or emotional relationship or is someone making you feel afraid or unsafe? Denies 09/16/2024 Sex and Gender Information Value Date Recorded Sex Assigned at Not on file Legal Sex Male 1:03 PM FROZEN MEAT CUTTER Gender Identity Not on file Sexual Orientation Straight 12/13/2023 11 :51 AM CDT Obstetrics History Last Filed Vital Signs Vital Sign Reading Time Taken Comments Blood Pressure 165/99 09/16/2024 11:20 AM CDT Pulse 88 09/16/2024 11:20 AM CDT Temperature 36.4 C (97.5 F) 09/16/2024 10:40 AM CDT Respiratory Rate 16 09/16/2024 11:2 0 AM CDT Oxygen Saturation 96% 09/16/2024 11: 20 AM CDT Inhaled Oxygen Concentration - - Weight 73.9 kg (162 lb 14.4 oz) 09/16/2024 8:11 AM CDT Height 172.7 cm (5' 8) 09/04/2024 5:40 PM CDT Body Mass Index 24.77 09/04/2024 5:40 PM CDT Plan of Treatment Health Maintenance Due Date Last Done Comments Colon Cancer Screening-Colonoscopy 1961 Hepatitis C Screening 1961 Hepatitis B Screening 1979 Regular Well Visit/Exam 18-64 1979 Zoster Vaccine (1 of 2) 02/28/1980 Pneumococcal vaccine <65 (3 of 3 - PCV) 09/23/2014 0 09/23/2013, 11/24/2008 Depression Screening 03/29/2022 03/29/2021 DTaP/Tdap/Td Vaccine (2 - Td or Tdap) 04/23/202205/2012 Influenza Vaccine (#1) 2024 Prostate Cancer Screening-PSA 08/05/2026 08/05/2024, 03/20/2024 Medical Devices Implanted Type Area Bag Turner Device Identifier Shelf Expiration Date Model / Serial / Lot [employer] Suture [place] Triple Loaded Knotless Fibertak 2.6mm Ar-[id number] - [id number] Implanted:Qty: 1 on 09/16/2024 by David Casey MD at [facility] [employer] [id number] 02/19/2029 AR-[id number] / / [id number] [employer] Swivelock C 4.75mm 19.1mm Closed Eyelet Vent [place] Suture Ar-2324bcc - [id number] Implanted:Qty: 1 on 09/16/2024 by David Casey MD at [facility] [employer] [id number] 06/19/2028 AR-2324BC C / / [id number] Procedures Procedure Name Priority Date/Time Associated Diagnosis Comments CA AN PROCEDURE PLACEHOLDER Routine 09/16/2024 10:54 AM CDT CA AN PROCEDURE PLACEHOLDER Routine 09/16/2024 10:53 AM CDT BW IP ANE LDA PERIPHERAL NERVE CATHETER Routine 09/16/2024 10:53 AM CDT CA AN PROCEDURE PLACEHOLDER Routine 09/16/2024 9:18 AM CDT CA AN ELECTIVE ENDOTRACHEAL AIRWAY Routine 09/16/2024 9:18 AM CDT ARTHROSCOPY SHOULDER BICEPS TENODESIS 09/16/2024 8:58 AM CDT Traumatic tear of right rotator cuff, unspecified tear extent, subsequent encounter Case Notes 09/12@1125: make second case in OR 2 per Bela via staff msg. BR Special Needs ARTHREX FIBERTAK & CORKSCREW ANCHORS, BICEPS BUTTON, CONT CATHETER ARTHROSCOPY SHOULDER ROTATOR CUFF REPAIR 09/16/2024 8:58 AM CDT Traumatic tear of right rotator cuff, unspecified tear extent, subsequent encounter Case Notes 09/12@1125: make second case in OR 2 per Bela via staff msg. BR Special Needs ARTHREX FIBERTAK & CORKSCREW ANCHORS, BICEPS BUTTON, CONT CATHETER XR TRANSFER OF OUTSIDE FILMS Routine 09/03/2024 1:48 PM CDT MSK MR OUTSIDE REFERENCE Routine 09/03/2024 1:47 PM CDT PSA, TOTAL AND FREE Routine 08/05/2024 2 :24 PM CDT Prostate cancer (HCC) RAD ONC ARIA SESSION SUMMARY 06/26/2024 7:26 AM CDT RAD ONC ARIA SESSION SUMMARY 06/24/2024 7:35 AM CDT RAD ONC ARIA SESSION SUMMARY 06/21/2024 7:54 AM CDT RAD ONC ARIA SESSION SUMMARY 06/19/2024 8:21 AM CDT from Last 3 Months Results * CA AN PROCEDURE PLACEHOLDER (09/16/2024 10:54 AM CDT) Narrative Rony Tamez MD - 09/16/2024 10:54 AM CDT Rony Tamez MD 09/16/2024 10:54 AM Peripheral Block Patient location during procedure: pre-op holding Reason for block: post-op pain management per surgeon request Ultrasound image in chart or stored: yes Block type: single shot Laterality: right Block type: PECS II Staff: Placed by: Anesthesiologist: Rony Tamez MD Procedure prep: Preprocedure checklist: patient identified, procedure contraindications assessed, site marked, procedure consent, surgical consent, IV checked, risks, benefits and alternatives discussed, monitors and equipment checked and timeout performed Patient position: supine and head of bed elevated Procedure performed while patient: sedate with meaningful contact Monitoring: ECG, oximetry and blood pressure Supplemental O2: nasal cannula Prep solution: chlorhexidine/alcohol PPE: provider hat/mask, sterile gloves and sterile probe cover and gel Peripheral nerve block: Technique: ultrasound guided Needle type: insulated, short-bevel and echogenic Needle gauge: 22 G Needle length: 80 mm Injection assessment: injection made incrementally with constant monitoring, see flowsheet for medication details, local visualized surrounding nerve on ultrasound, negative aspiration for heme, no paresthesias noted and normal resistance to injection Assessment: Block success: full evaluation pending Events: patient tolerated procedure well with no complications us Rony Tamez MD ANESTHESIA ORDERABLES Final Res ult * BW IP ANE LDA PERIPHERAL NERVE CATHETER, CA AN PROCEDURE PLACEHOLDER (09/16/2024 10:53 AM CDT) Narrative Rony Tamez MD - 09/16/2024 10:53 AM CDT Rony Tamez MD 09/16/2024 10:54 AM Peripheral Block Patient location during procedure: pre-op holding Reason for block: post-op pain management per surgeon request Ultrasound image in chart or stored: yes Block type: catheter continuous infusion Laterality: right Block type: brachial plexus - interscalene Staff: Placed by: Anesthesiologist: Rony Tamez MD Procedure prep: Preprocedure checklist: patient identified, procedure contraindications assessed, site marked, procedure consent, surgical consent, IV checked, risks, benefits and alternatives discussed, monitors and equipment checked and timeout performed Patient position: supine and head of bed elevated Procedure performed while patient: sedate with meaningful contact Monitoring: ECG, oximetry and blood pressure Supplemental O2: nasal cannula Prep solution: chlorhexidine/alcohol PPE: provider hat/mask, sterile gloves, sterile drape and sterile probe cover and gel Skin infiltrated with lidocaine 1%: yes Peripheral nerve block: Technique: ultrasound guided Needle type: echogenic and short-bevel Needle gauge: 18 G Needle length: 68 mm. Injection assessment: injection made incrementally with constant monitoring, see flowsheet for medication details, local visualized surrounding nerve on ultrasound, negative aspiration for heme, no paresthesias noted and normal resistance to injection Catheter: Catheter type: catheter over needle Catheter over needle length: 51 Catheter placement details: catheter position confirmed by ultrasound, no aspiration of heme, steri-strips, occlusive dressing applied and dermal adhesive Assessment: Block success: full evaluation pending Events: patient tolerated procedure well with no complications us Rony Tamez MD ANESTHESIA ORDERABLES Final Res ult * CA AN ELECTIVE ENDOTRACHEAL AIRWAY, CA AN PROCEDURE PLACEHOLDER (09/16/2024 9:18 AM CDT) Narrative Braulio Mcnally CRNA - 09/16/2024 9:18 AM CDT Braulio Mcnally CRNA 09/16/2024 9:19 AM Airway Patient location: OR Urgency: elective Indications for airway management: anesthesia Difficult airway: no Airway prep: Preoxygenated: yes Patient position: sniffing Mask difficulty assessment: 0 - not attempted Spontaneous ventilation during airway: absent Sedation level during airway: GA Final airway details: Final airway type: endotracheal airway Tube type: ETT ETT size: 7.5 mm Cuffed: yes Technique used for successful ETT placement: video laryngoscopy Devices/Methods used in placement: intubating stylet Insertion site: oral Blade type: Jacey Video blade type: Lau Blade size: 4 Cormack-Lehane (video): grade I - full view of glottis Initial cuff pressure: 25 cm H2O Cuff volume: 7 mL Cuff inflated with: air ETT to teeth: 23 cm Placement verified by: auscultation and CO2 detection Airway secured with: silk tape Number of attempts: 1 Rony Tamez MD ANESTHESIA ORDERABLES Final Res ult * XR Outside Reference (09/03/2024 1:48 PM CDT) Impressions [facility] - 09/03/2024 1:48 PM CDT These images are for Reference purposes only and have not been reviewed by [facility]iology. There will be no report generated by a [facility] Radiologist. Narrative [facility] - 09/03/2024 1:48 PM CDT EXAMINATION: Images For Reference Purposes Only David Casey MD IMG XR PROCEDURES Fin al Result [facility] * MSK MR Outside Reference (09/03/2024 1:47 PM CDT) Impressions [facility] - 09/03/2024 1:47 PM CDT These images are for Reference purposes only and have not been reviewed by [facility]. There will be no report generated by a [facility] Radiologist. Narrative [facility] - 09/03/2024 1:47 PM CDT EXAMINATION: Images For Reference Purposes Only David Casey MD IMG MRI PROCEDURES Fi nal Result [facility] * (ABNORMAL) PSA, total and free (08/05/2024 2:24 PM CDT) PSA 4.3(H) < OR = 4.0 ng/mL [facility] PSA, free 0.3 ng/mL [facility] PSA, free 7(L) >25 % (calc) [facility] Comment: PSA(ng/mL) Free PSA(%) Estimated(x) Probability of Cancer(as%) 0-2.5 (*) Approx. 1 2.6-4.0(1) 0-27(2) 24(3) 4.1-10(4) 0-10 56 11-15 28 16-20 20 21-25 16 >or =26 8 >10(+) N/A >50 References:(1)Jennona et al.:Urology 60: 469-474 (2001) (2)Juliette et al.:J.Urol 168: 922-925 (2001) Free PSA(%) Sensitivity(%) Specificity(%) < or = 25 85 19 < or = 30 93 9 (3)Catalona et al.:JULIEN 277: 1649-5065 (1996) (4)Catalona et al.:JULIEN 279: 2808-3020 (1997) (x)These estimates vary with age, ethnicity, family history and GABRIELLA results. (*)The diagnostic usefulness of % Free PSA has not been established in patients with total PSA below 2.6 ng/mL (+)In men with PSA above 10 ng/mL, prostate cancer risk is determined by total PSA alone. The Total PSA value from this assay system is standardized against the equimolar PSA standard. The test result will be approximately 20% higher when compared to the WHO-standardized Total PSA (Siemens assay). Comparison of serial PSA results should be interpreted with this fact in mind. PSA was performed using the [place] Immunoassay method. Values obtained from different assay methods cannot be used interchangeably. PSA levels, regardless of value, should not be interpreted as absolute evidence of the presence or absence of disease. Blood 08/05/2024 2:24 PM CDT 08/05/2024 2:25 PM CDT [facility] - 08/07/2024 3:08 PM CDT FASTING:NO FASTING: NO us Terrell Ramos MD LAB BLOOD ORDERABLES F inal Result [facility] [address] [place] [address] * RAD ONC ARIA SESSION SUMMARY (06/26/2024 [...] ORD ERABLES Final Result Performing Organization Address City/[facility] Co de Phone Number ARIHuseyin * RAD ONC ARIA SESSION SUMMARY (06/21/2024 7:54 AM CDT) Course Name C1_Prostate_ 2024 ARIA [...] ORD ERABLES Final Result Performing Organization Address [facility] de Phone Number ARIA * RAD ONC [...] RADIATION ONCOLOGY ORD ERABLES Final Result ARIA from Last 3 Months Insurance [place] ANTHEM ACCESS CHOICE ANTHEM ACCESS CHOICE Advance Directives For more information, please contact: [phone] Documents on File Type Date Recorded Patient Gill Box Operator Expl anation ADVANCE DIRECTIVE 09/18/2024 5:36 PM POWER OF COMMERCIAL ROOFER-MEDICAL Care Teams Automotive Mechanical Engineer Relationship Specialty Start Date End Date Keegan Arrington MD [address] [place] [address] PCP - General Internal Medicine 11/07/23 Terrell Ramos MD [address] [facility] # LL LL [id number] [place] [address] Radiation Oncologist Radiation Oncology 04/23/24
--- OUTSIDE RECORDS SUMMARY | 2024-09-19 18:32 | XMS_ITS | Referral Summary ---
Author Organization [facility] [address] Address [address] [place] [address] Care Team Providers Care Graphite Grinder Name Role Phone Keegan Arrington MD Primary Care Provider + [phone] Terrell Ramos MD Unavailable [phone] Encounters Date Type Department Care Team Description 09/19/2024 Documentation Orthopaedic Surgery Marika Chavez MD 09/16/2024 9:00 AM CDT - 09/16/2024 11:15 AM CDT Surgery [facility] [address] [place] [address] David Casey MD RIGHT SHOULDER ARTHROSCOPIC ROTATOR CUFF REPAIR 09/16/2024 8:55 AM CDT Anesthesia Event [facility] [address] [place] [address] Rony Tamez MD Gangloff, Kerry Marie, NP 09/16/2024 7:51 AM CDT - 09/16/2024 11:49 AM CDT Hospital Encounter [facility] [address] [place] [address] David Casey MD Traumatic complete tear of right rotator cuff, sequela (Primary Dx) Discharge Disposition: Discharge to home or self care 09/12/2024 Telephone [facility] Orthopaedic Surgery [address] [facility] 1st Floor [address] [place] [address] David Casey MD 09/05/2024 Documentation [facility] Surgery [address] [place] [address] Afia De La Torre 09/04/2024 Orders Only [facility] Orthopaedic Surgery [address] [facility] 1st Floor [address] [place] [address] David Casey MD Traumatic tear of right rotator cuff, unspecified tear extent, subsequent encounter (Primary Dx) 09/03/2024 1:48 PM CDT - 09/03/2024 11:59 PM CDT Hospital Encounter [facility] [address] [place] [address] Discharge Disposition: Discharge to home or self care 09/03/2024 1:47 PM CDT - 09/03/2024 11:59 PM CDT Hospital Encounter [facility] ([facility]) [address] [place] [address] Discharge Disposition: Discharge to home or self care 09/03/2024 1:00 PM CDT Office Visit [facility] Orthopaedic Surgery [address] [facility] 1st Floor [address] [place] [address] David Casey MD Traumatic complete tear of right rotator cuff, initial encounter (Primary Dx) 08/19/2024 10:40 AM CDT Office Visit [facility] Urology [address] [facility] Building [address] [place] [address] Rudy Gottlieb NP Erectile dysfunction following radiation therapy (Primary Dx); Peyronie's disease 08/12/2024 11:30 AM CDT Office Visit [facility] Radiation Oncology [address] [place] [address] [place] [address] Terrell Ramos MD Prostate cancer (HCC) (Primary Dx) 07/08/2024 Telephone [facility] Radiation Oncology [address] [facility] [place] [address] Crissy Lara RN 07/08/2024 Orders Only [facility] Radiation Oncology [address] [facility] [place] [address] Denton Brown MD Prostate cancer (HCC) (Primary Dx) 07/08/2024 Orders Only [facility] Radiation Oncology [address] [facility] [place] [address] Terrell Ramos MD Prostate cancer (HCC) (Primary Dx) 07/06/2024 Telephone [facility] Advanced Medicine Radiation Oncology [address] [facility] [place] [address] Terrell Ramos MD 07/03/2024 Orders Only [facility] Advanced Medicine Radiation Oncology [address] [facility] [place] [address] Terrell Ramos MD 06/27/2024 Telephone [facility] Advanced Medicine Radiation Oncology [address] [place] [address] Crissy Lara RN 06/27/2024 Orders Only [facility] Advanced [facility] Radiation Oncology [address] [place] [address] Terrell Ramos MD 06/26/2024 Completion of Therapy [facility] Radiation Oncology [address] [place] [address] Terrell Ramos MD Prostate cancer (HCC) (Primary Dx) 06/26/2024 Orders Only RAD ONC TREATMENTS Miscellaneous, Not In File 06/26/2024 6:43 AM CDT - 06/26/2024 11:59 PM CDT Hospital Encounter [facility] Radiation Oncology [address] [facility] [place] [address] Terrell Ramos MD Discharge Disposition: Discharge to home or self care 06/24/2024 Orders Only RAD ONC TREATMENTS Miscellaneous, Not In File 06/24/2024 6:54 AM CDT - 06/24/2024 11:59 PM CDT Hospital Encounter [facility] Radiation Oncology [address] [place] [address] Terrell Ramos MD Discharge Disposition: Discharge to home or self care 06/21/2024 Orders Only [facility] Radiation Oncology [address] [place] [address] Terrell Ramos MD 06/21/2024 Orders Only [facility] Radiation Oncology [address] [place] [address] Lyric Jarquin MD 06/21/2024 Documentation [facility] Radiation Oncology [address] [place] [address] Lyric Jarquin MD 06/21/2024 Orders Only RAD ONC TREATMENTS Miscellaneous, Not In File 06/21/2024 7:35 AM CDT - 06/21/2024 11:59 PM CDT Hospital Encounter [facility] Radiation Oncology [address] [place] [address] Terrell Ramos MD Discharge Disposition: Discharge to home or self care 06/19/2024 OTV [facility] Radiation Oncology [address] [place] [address] Tammie Hall MD Prostate cancer (HCC) (Primary Dx) 06/19/2024 Orders Only RAD ONC TREATMENTS Miscellaneous, Not In File 06/19/2024 7:30 AM CDT - 06/19/2024 11:59 PM CDT Hospital Encounter [facility] Radiation Oncology [address] [facility] [place] [address] Terrell Ramos MD Discharge Disposition: Discharge to home or self care from Last 3 Months Allergies Active Allergy Reactions Criticality Noted Date Comments Cefuroxime Stomach upset Low 01/25/2024 Morphine Nausea & Vomiting Low 08/26/2004 Oxycodone Nausea & Vomiting Low 09/19/2024 Medications Breo Ellipta 200-25 mcg/dose diskus inhalerIndication s:Maintenance Therapy for Asthma Inhale 2 puffs librarian special collections before breakfast 10/31/19 24 Active albuterol HFA [...] (six) hours 120 tablet 11 07/04/19 25 025 Disconti nued(The rapy complete d) hydrocortisone [...] 04/01/2021 Assessment & Plan (04/11/2021 2:57 PM OUTREACH WORKER): Oral candidiasis, may have yogurt with activated cultures, will start him on nystatin swish and spit 500 1000 unit per 5 cc 1 cc swish and spit least 3 times a day for 7-10 days. Requests that he use a mild tooth paste, nothing with meera control or cecil at this time. Assessment & Plan (04/03/2021 9:55 PM OUTREACH WORKER): Oral Nystatin Swish and Spit. 4 times a day. Plain tooth paste, soft tooth brush Medication reviewed with patient and use. Patient states understands. Uncomplicated asthma 03/31/2021 Assessment & Plan (04/11/2021 2:42 PM OUTREACH WORKER): Continue with medication as ordered. No refills are needed at this time. States has been doing well with asthma. Note usually has more problems in the springtime. The see specialist in regards to this event. Assessment & Plan (03/31/2021 10:22 PM OUTREACH WORKER): States has problems with asthma, which is intermittent and uncomplicated. Used Advair Diskus 250-50 for flairs. Also takes some OTC meds for allergies as needed. No has never smoked. Right upper quadrant pain 03/29/2021 Assessment & Plan (04/11/2021 2:54 PM OUTREACH WORKER): At this time will set up for [...] day. Assessment & Plan (03/31/2021 10:24 PM OUTREACH WORKER): States he has had some pain in [...] on file Legal Sex Male 1:03 PM OUTREACH WORKER Gender Identity Not on file Sexual Orientation [...] 09/04/2024 5:40 PM CDT Plan of Treatment Not on file Medical Devices Implanted Type Area Sweetbread Trimmer Device Identifier Shelf Expiration Date Model / Serial / Lot [employer] Suture [place] Horne Triple Loaded Knotless Fibertak 2.6mm Ar-3633sp - [id number] Implanted:Qty: 1 on 09/16/2024 by [facility] [employer] [id number] 02/19/2029 AR-3633SP / / [id number] [employer] Swivelock C 4.75mm 19.1mm Closed Eyelet Vent Van Horne Suture Ar-2324bcc - [id number] Implanted:Qty: 1 on 09/16/2024 by David Casey MD at [facility] [employer] [id number] 06/19/2028 AR-2324BC C / / [id number] Procedures Procedure Name Priority Date/Time Associated Diagnosis Comments NC AN PROCEDURE PLACEHOLDER Routine 09/16/2024 10:54 AM CDT NC AN PROCEDURE PLACEHOLDER Routine 09/16/2024 10:53 AM CDT BW IP ANE LDA PERIPHERAL NERVE CATHETER Routine 09/16/2024 10:53 AM CDT NC AN PROCEDURE PLACEHOLDER Routine 09/16/2024 9:18 AM CDT NC AN ELECTIVE ENDOTRACHEAL AIRWAY Routine 09/16/2024 9:18 [...] CDT from Last 3 Months Results * NC AN PROCEDURE PLACEHOLDER (09/16/2024 10:54 AM CDT) [...] BW IP ANE LDA PERIPHERAL NERVE CATHETER, NC AN PROCEDURE PLACEHOLDER (09/16/2024 10:53 AM CDT) [...] patient tolerated procedure well with no complications Rony Tamez MD ANESTHESIA ORDERABLES Final Res ult * NC AN ELECTIVE ENDOTRACHEAL AIRWAY, NC AN PROCEDURE PLACEHOLDER (09/16/2024 9:18 AM CDT) [...] with: silk tape Number of attempts: 1 us Rony Tamez MD ANESTHESIA ORDERABLES Final Res ult * XR Outside Reference (09/03/2024 1:48 PM CDT) Impressions [facility] - 09/03/2024 1:48 PM CDT These images are for Reference purposes only and have not been reviewed by [facility] Radiology. There will be no report generated by a [facility] Radiologist. Narrative RAD_PACS_[facility] - 09/03/2024 1:48 PM CDT EXAMINATION: Images For Reference Purposes Only David Casey MD IMG XR PROCEDURES Fin al Result Performing Organization Address [facility] Co de Phone Number [facility] * MSK MR Outside Reference (09/03/2024 1:47 PM CDT) Impressions [facility] - 09/03/2024 1:47 PM CDT These images are for Reference purposes only and have not been reviewed by [facility] Radiology. There will be no report generated by a [facility] Radiologist. Narrative [facility] - 09/03/2024 1:47 PM CDT EXAMINATION: Images For Reference Purposes Only David Casey MD IMG MRI PROCEDURES Fi nal Result Performing Organization Address [facility] de Phone Number [facility] * (ABNORMAL) PSA, total and free [...] 16 >or =26 8 >10(+) N/A >50 References:(1)Juliette et al.:Urology 60: 469-474 (2002) (2)Juliette et al.:J.Urol 168: 922-925 (2002) Free PSA(%) Sensitivity(%) Specificity(%) < or = 25 85 19 < or = 30 93 9 (3)Catalona et al.:JULIEN 277: 1222-0663 (1996) (4)Catalona et al.:JULIEN 279: 8130-7651 (1997) (x)These estimates vary with age, ethnicity, [...] mind. PSA was performed using the Ty Kat Immunoassay method. Values obtained from different assay methods cannot be used interchangeably. PSA levels, regardless of value, should not be interpreted as absolute evidence of the presence or absence of disease. Blood 08/05/2024 2:24 PM CDT 08/05/2024 2:25 PM CDT [facility] - 08/07/2024 3:08 PM CDT FASTING:NO FASTING: NO Terrell Ramos MD LAB BLOOD ORDERABLES F inal Result [facility] [address] [place] [address] * RAD ONC ARIA SESSION SUMMARY (06/26/2024 [...] Miscellaneous RADIATION ONCOLOGY ORD ERABLES Final Result LINAA * RAD ONC ARIA SESSION SUMMARY (06/24/2024 [...] RADIATION ONCOLOGY ORD ERABLES Final Result CHIKI from Last 3 Months Insurance [employer] ID [facility] ACCESS CHO[facility] Advance Directives For more information, please contact: [phone] Documents on File Type Date Recorded Patient Customer Account Manager Expl anation ADVANCE DIRECTIVE 09/18/2024 5:36 PM POWER OF MEDICAL RECORDS [employer] Care Teams Graphite Grinder Relationship Specialty Start Date End Date Keegan Arrington MD [address] [place] [address] PCP - General Internal Medicine 11/07/23 Terrell Ramos MD [address] [facility] [address] [place] [address] Radiation Oncologist Radiation Oncology 04/23/24
--- OUTSIDE RECORDS SUMMARY | 2024-09-19 18:32 | XMS_ITS | Encounter Summary ---
Author Organization [facility] Address 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
--- OUTSIDE RECORDS SUMMARY | 2024-09-19 18:32 | XMS_ITS | Clinical Summary ---
Author Organization [facility] Address [address] [place] [address] Care Team Providers Care Laborer Cook House Name Role Phone Keegan Arrington MD Primary Care Provider [phone] Social History Tobacco Use Types Packs/Day Years Used Date Smoking Tobacco: Never Assessed Sex and Gender Information Value Date Recorded Sex Assigned at Not on file Legal Sex Male 7:08 PM CDT Gender Identity Not on file Sexual Orientation Not on file Plan of Treatment Health Maintenance Due Date Last Done Comments Colorectal Cancer Screening Colonoscopy (10 Years) 1961 Annual Physical 02/28/1964 Hepatitis C 1979 Zoster Vaccines (1 of 2) 2011 Pneumococcal Vaccine: 50+ Years (2 of 2 - PCV) 09/23/2014 09/23/2013, 11/24/2008 DTaP, Tdap and Td Vaccines ( 2 - Td or Tdap) 04/23/2022 04/23/2012 COVID-19 Vaccine ( - 2023-2 5 season) 2023 RSV Immunization or 60+ Years (1 - 1-dose 75+ series) 02/28/2036 Meningococcal B Vaccine Aged Out No l onger eligible based on patient's age to complete this topic Meningococcal Vaccine Aged Out No naveen elly eligible based on patient's age to complete this topic RSV Immunizations Under 20 Months Aged Out No longer eligible b ased on patient's age to complete this topic Insurance [facility] Care Teams Laborer Cook House Relationship Specialty Start Date End Date Keegan Arrington MD [address] [place] [address] PCP - General INTERNAL MEDICINE 07/13/22
--- OUTSIDE RECORDS SUMMARY | 2024-09-19 18:32 | XMS_ITS | Clinical Summary ---
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
--- OUTSIDE RECORDS SUMMARY | 2024-09-19 18:32 | XMS_ITS | Encounter Summary ---
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
--- NOTE | 2024-09-19 18:42 | ED.NAVMDI ---
HPI - Nausea/Vomiting/Diarrhea General Chief complaint: Nausea/Vomiting/Diarrhea Stated complaint: adverse reaction to medication Time Seen by Provider: 09/19/24 18:40 Source: patient Mode of arrival: ambulatory Limitations: no limitations History of Present Illness HPI Narrative: patient is status post right shoulder rotator cuff surgery 4 days ago was discharge on Celebrex, oxycodone, Tylenol and Zofran. Patient is allergic to morphine. Patient came to the ED complaining of severe nausea , unable to eat or drink And intermittent generalize headache since the surgery until now. Patient report that Celebrex tear up his stomach , could not take it. Patient had a prescription of Toradol today. No improvement. was told by his surgeon to come to the emergency room. Related Data Home Medications ?Medication ?Instructions ?Recorded ?Confirmed ?Last Taken ?Type fluticasone 250 mcg-salmeterol 50 1 inh inhalation BID 11/22/23 12/04/23 12/04/23 History mcg/dose blistr powdr for inhalation (Advair Diskus) tamsulosin 0.4 mg capsule (Flomax) 0.4 mg PO DAILY 12/19/23 Unknown History Allergies Allergy/AdvReac Type Severity Reaction Status Date / Time cefuroxime Allergy Intermediate ABD PAIN Verified 09/19/24 18:33 /SEVERE DIARRHEA morphine AdvReac Intermediate Vomiting Verified 09/19/24 18:33 Review of Systems Review of Systems: All systems reviewed & are unremarkable except as noted in HPI and below PMFSH Past Medical History Medical History JOVANNI (obstructive sleep apnea) Fracture, facial bones Trigger finger GERD (gastroesophageal reflux disease) Dyslipidemia Asthma Surgical History Surgical History H/O knee surgery Family History Family History Father Bladder cancer Diabetes mellitus Mother Breast cancer Social History Social History Social History: nonsmoker nonalcoholic Smoking status: Never smoker Alcohol intake: never Substance use: never Substance use type: does not use Living arrangements: with family Occupation/Education: occupation 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 Musculoskeletal: status post right shoulder rotator cuff surgery, splint, sling able to move fingers Neurologic: Alert and oriented ?3, LODGING FACILITIES ATTENDANT is normal as tested, no gross motor deficit Course Consultations Consultation #1: DR KAPADIA, ORTHOPEDIC ON-CALL AT [facility] RECOMMENDS TO CONTINUE TORADOL, ZOFRAN AND CALLED HIS ORTHOPEDIC DR. TORRES IN THE MORNING FOR FURTHER MANAGEMENT Date: 09/19/24 Vital Signs Vital signs: Vital Signs Temperature 36.7 C 09/19/24 18:31 Pulse Rate 106 H 09/19/24 18:31 Respiratory Rate 18 09/19/24 18:31 Blood Pressure 191/110 H 09/19/24 18:31 Pulse Oximetry 99 09/19/24 18:31 Oxygen Delivery Room Air 09/19/24 18:31 Temperature 36.7 C 09/19/24 18:31 Pulse Rate 105 H 09/19/24 20:00 Respiratory Rate 18 09/19/24 20:00 Blood Pressure 145/94 H 09/19/24 20:00 Pulse Oximetry 96 09/19/24 20:00 Oxygen Delivery Room Air 09/19/24 20:00 MDM - Nausea/Vomiting/Diarrhea MDM Narrative Medical decision making narrative: patient had allergy to morphine which cause severe nausea and vomiting, started on oxycodone recently status post right shoulder rotator cuff surgery, patient unable to tolerate the oxycodone because of the severity of nausea. Patient started today on Toradol p.o., in the ED patient received 1 L of normal saline IV, Toradol 30 mg IV, Benadryl 50 mg IV, Reglan 10 mg IV, Ativan 1 mg IV with significant improvement. Patient feeling much better, more relaxed. Patient was advised to call his orthopedic tomorrow for further management. Differential Diagnosis Differential diagnosis: Likely drug-induced nausea and vomiting and dehydration Discharge Plan Discharge Clinical Impression: Narcotic-induced nausea and vomiting Patient Disposition: Home Condition: Improved Instructions: Acute Nausea and Vomiting (ED), Panic Disorder (ED) Additional Instructions: RETURN IF SYMPTOMS ARE WORSENING , CALL YOUR ORTHOPEDIC TOMORROW FOR FURTHER MANAGEMENT, TAKE TYLENOL , TORADOLAS NEEDED FOR ACHES AND PAIN, CONTINUE HOME MEDICATIONS. Patient Language: Frisian Prescriptions: No Action naproxen 500 mg tablet 500 mg PO BID Qty: 14 0RF tramadol 50 mg tablet 50 mg PO Q6H PRN (Reason: pain) Qty: 20 0RF tamsulosin [Flomax] 0.4 mg capsule 0.4 mg PO DAILY cyclobenzaprine 5 mg tablet 5 mg PO TID Qty: 90 2RF fluticasone propion-salmeterol [Advair Diskus] 250-50 mcg/dose blister with device 1 inh INHALATION BID Follow-up/Referrals: Keegan Arrington MD [Primary Care Provider] -
--- NOTE | 2024-09-19 18:55 | PC.NURSE ---
ASSUMED CARE. REPORT RECEIVED FROM ELLIS BARRETT. PATIENT CURRENTLY RESTING ON STRETCHER. IS AT HIS SIDE. CALL LIGHT IN REACH
[2024-09-19] MEDS: SODIUM CHLORIDE 0.9% IV 1,000 ML 999 ML IV CONT (19:00)
[2024-09-19] MEDS: KETOROLAC 30 MG/ML VIAL (*BKC) IV PUSH (19:01)
[2024-09-19] MEDS: METOCLOPRAMIDE HCL INJ 10 MG/2 ML VIAL IV PUSH (19:01)
--- NOTE | 2024-09-19 19:14 | PC.NURSE ---
PATIENT REPORTS THAT HE IS DIZZY. FEELS LIKE HE IS FALLING. PATIENT HAS SIDE RAILS UP. TOLD PATIENT HE IS NOT FALLING. HIS DIZZINESS IS FROM THE BENADRYL. PATIENT BEING CLOSELY MONITORED
--- OUTSIDE RECORDS SUMMARY | 2024-09-19 19:17 | XMS_ITS | Clinical Summary ---
Author Organization [facility] Address [address] [place] [address] Care Team Providers Care Media Professional Name Role Phone Keegan Arrington MD Primary Care Provider + [phone] Terrell Ramos MD Unavailable [phone] Allergies Active Allergy Reactions Criticality Noted Date Comments Cefuroxime Stomach upset Low 01/25/2024 Morphine Nausea & Vomiting Low 08/26/2004 Oxycodone Nausea & Vomiting Low 09/19/2024 Medications Breo Ellipta 200-25 mcg/dose diskus inhalerIndication s:Maintenance Therapy for Asthma Inhale 2 puffs chief of anesthesiology before breakfast 10/31/19 24 Active albuterol HFA [...] 04/01/2021 Assessment & Plan (04/11/2021 2:57 PM WAREHOUSE HAND): Oral candidiasis, may have yogurt with activated cultures, will start him on nystatin swish and spit 500 1000 unit per 5 cc 1 cc swish and spit least 3 times a day for 7-10 days. Requests that he use a mild tooth paste, nothing with meera control or cecil at this time. Assessment & Plan (04/03/2021 9:55 PM WAREHOUSE HAND): Oral Nystatin Swish and Spit. 4 times a day. Plain tooth paste, soft tooth brush Medication reviewed with patient and use. Patient states understands. Uncomplicated asthma 03/31/2021 Assessment & Plan (04/11/2021 2:42 PM WAREHOUSE HAND): Continue with medication as ordered. No refills are needed at this time. States has been doing well with asthma. Note usually has more problems in the springtime. The see specialist in regards to this event. Assessment & Plan (03/31/2021 10:22 PM WAREHOUSE HAND): States has problems with asthma, which is intermittent and uncomplicated. Used Advair Diskus 250-50 for flairs. Also takes some OTC meds for allergies as needed. No has never smoked. Right upper quadrant pain 03/29/2021 Assessment & Plan (04/11/2021 2:54 PM WAREHOUSE HAND): At this time will set up for [...] day. Assessment & Plan (03/31/2021 10:24 PM WAREHOUSE HAND): States he has had some pain in [...] CDT - 09/16/2024 11:15 AM CDT Surgery [facility] Surgery at [address] [address] David Casey MD RIGHT SHOULDER ARTHROSCOPIC ROTATOR CUFF REPAIR 09/16/2024 8:55 AM CDT Anesthesia Event [facility] Surgery at [address] [address] Rony Tamez MD Gangloff, Kerry Marie, NP 09/16/2024 7:51 AM CDT - 09/16/2024 11:49 AM CDT Hospital Encounter [facility] Surgery at [address] [address] David Casey MD Traumatic complete tear of right rotator cuff, sequela (Primary Dx) Discharge Disposition: Discharge to home or self care 09/12/2024 Telephone [facility] Orthopaedic Surgery [address] [facility] 1st Floor [address] [place] [address] David Casey MD 09/05/2024 Documentation [facility] Surgery [address] [place] [address] Afia De La Torre 09/04/2024 Orders Only [facility] Orthopaedic Surgery [address] [place] [address] 1st Floor [address] [place] [phone] David Casey MD Traumatic tear of right rotator cuff, unspecified tear extent, subsequent encounter (Primary Dx) 09/03/2024 1:48 PM CDT - 09/03/2024 11:59 PM CDT Hospital Encounter [facility] [address] [place] [address] Discharge Disposition: Discharge to home or self care 09/03/2024 1:47 PM CDT - 09/03/2024 11:59 PM CDT Hospital Encounter [facility]) [address] [place] [address] Discharge Disposition: Discharge to home or self care 09/03/2024 1:00 PM CDT Office Visit [facility] Orthopaedic Surgery [address] [facility] 1st Floor [address] [place] [address] David Casey MD Traumatic complete tear of right rotator cuff, initial encounter (Primary Dx) 08/19/2024 10:40 AM CDT Office Visit [facility] Urology [address] [facility] Medical Office Building [address] [place] [address] Rudy Gottlieb NP Erectile dysfunction following radiation therapy (Primary Dx); Peyronie's disease 08/12/2024 11:30 AM CDT Office Visit [facility] Radiation Oncology [address] [place] [address] Terrell Ramos MD Prostate cancer (HCC) (Primary Dx) 07/08/2024 Telephone [facility] Radiation Oncology [address] [facility] [place] [address] Crissy Lara RN 07/08/2024 Orders Only [facility] Radiation Oncology [address] [place] [address] Denton Brown MD Prostate cancer (HCC) (Primary Dx) 07/08/2024 Orders Only [facility] Radiation Oncology [address] [place] [address] Terrell Ramos MD Prostate cancer (HCC) (Primary Dx) 07/06/2024 Telephone [facility] Radiation Oncology [address] [place] [address] Terrell Ramos MD 07/03/2024 Orders Only [facility] Radiation Oncology [address] [place] [address] Terrell Ramos MD 06/27/2024 Telephone [facility] Radiation Oncology [address] [facility] [place] [address] Crissy Lara RN 06/27/2024 Orders Only [facility] Radiation Oncology [address] [facility] [place] [address] Terrell Ramos MD 06/26/2024 6:43 AM CDT - 06/26/2024 11:59 PM CDT Hospital Encounter [facility] Radiation Oncology [address] [place] [address] Terrell Ramos MD Discharge Disposition: Discharge to home or self care 06/26/2024 Completion of Therapy [facility] Radiation Oncology [address] [place] [address] Terrell Ramos MD Prostate cancer (HCC) (Primary Dx) 06/26/2024 Orders Only RAD ONC TREATMENTS Miscellaneous, Not In File 06/24/2024 6:54 AM CDT - 06/24/2024 11:59 PM CDT Hospital Encounter [facility] Radiation Oncology [address] [place] [address] Terrell Ramos MD Discharge Disposition: Discharge to home or self care 06/24/2024 Orders Only RAD ONC TREATMENTS Miscellaneous, Not In File 06/21/2024 7:35 AM CDT - 06/21/2024 11:59 PM CDT Hospital Encounter [facility] Radiation Oncology [address] [place] [address] Terrell Ramos MD Discharge Disposition: Discharge to home or self care 06/21/2024 Orders Only [facility] Radiation Oncology [address] [place] [address] Terrell Ramos MD 06/21/2024 Orders Only [facility] Medicine Radiation Oncology [address] [place] [address] Lyric Jarquin MD 06/21/2024 Documentation [facility] Radiation Oncology [address] [place] [address] Lyric Jarquin MD 06/21/2024 Orders Only RAD ONC TREATMENTS Miscellaneous, Not In File 06/19/2024 7:30 AM CDT - 06/19/2024 11:59 PM CDT Hospital Encounter [facility] Radiation Oncology [address] [place] [address] Terrell Ramos MD Discharge Disposition: Discharge to home or self care 06/19/2024 OTV [facility] Radiation Oncology [address] [place] [address] Tammie Hall MD Prostate cancer (HCC) (Primary [...] on file Legal Sex Male 1:03 PM WAREHOUSE HAND Gender Identity Not on file Sexual Orientation [...] 08/05/2024, 03/20/2024 Medical Devices Implanted Type Area Welding Production Supervisor Device Identifier Shelf Expiration Date Model / Serial / Lot [employer] Suture Charlotte Triple Loaded Knotless Fibertak 2.6mm Ar-3633sp - [id number] Implanted:Qty: 1 on 09/16/2024 by David Casey MD at [facility] [employer] [id number] 02/19/2029 AR-3633SP / / [id number] [employer] Swivelock C 4.75mm 19.1mm Closed Eyelet Vent Charlotte Suture Ar-2324bcc - [id number] Implanted:Qty: 1 on 09/16/2024 by David Casey MD at [facility] [employer] [id number] 06/19/2028 AR-2324BC C / / [id number] Procedures Procedure Name Priority Date/Time Associated Diagnosis Comments WA AN PROCEDURE PLACEHOLDER Routine 09/16/2024 10:54 AM CDT WA AN PROCEDURE PLACEHOLDER Routine 09/16/2024 10:53 AM CDT BW IP ANE LDA PERIPHERAL NERVE CATHETER Routine 09/16/2024 10:53 AM CDT WA AN PROCEDURE PLACEHOLDER Routine 09/16/2024 9:18 AM CDT WA AN ELECTIVE ENDOTRACHEAL AIRWAY Routine 09/16/2024 9:18 [...] CDT from Last 3 Months Results * WA AN PROCEDURE PLACEHOLDER (09/16/2024 10:54 AM CDT) [...] BW IP ANE LDA PERIPHERAL NERVE CATHETER, WA AN PROCEDURE PLACEHOLDER (09/16/2024 10:53 AM CDT) [...] MD ANESTHESIA ORDERABLES Final Res ult * WA AN ELECTIVE ENDOTRACHEAL AIRWAY, WA AN PROCEDURE PLACEHOLDER (09/16/2024 9:18 AM CDT) Narrative Braulio Mcnally CRNA - 09/16/2024 9:18 AM CDT Braulio Mcnalyl CRNA 09/16/2024 9:19 AM Airway Patient location: [...] only and have not been reviewed by [facility] Rad[facility]. There will be no report generated by a [facility] Radiologist. Narrative [facility] - 09/03/2024 1:48 PM CDT EXAMINATION: Images For Reference Purposes Only David Casey MD IMG XR PROCEDURES Fin al Result [facility] * MSK MR Outside Reference (09/03/2024 1:47 PM CDT) Impressions [facility] - 09/03/2024 1:47 PM CDT These images are for Reference purposes only and have not been reviewed by [facility]. There will be no report generated by a [facility] Radiologist. Narrative [facility]ELIS[facility] - 09/03/2024 1:47 PM [...] 30 93 9 (3)Catalona et al.:JULIEN 277: [id number] (1996) (4)Catalona et al.:JULIEN 279: [id number] (1997) (x)These estimates vary with age, ethnicity, [...] mind. PSA was performed using the Ty Mitchell Immunoassay method. Values obtained from different assay methods cannot be used interchangeably. PSA levels, regardless of value, should not be interpreted as absolute evidence of the presence or absence of disease. Blood 08/05/2024 2:24 PM CDT 08/05/2024 2:25 PM CDT [facility] - 08/07/2024 3:08 PM CDT FASTING:NO FASTING: NO us Terrell Ramos MD LAB BLOOD ORDERABLES F inal Result [facility] [address] [place] [address] * RAD ONC ARIA SESSION SUMMARY (06/26/2024 [...] ORD ERABLES Final Result Performing Organization Address City/[facility] Co de Phone Number ARIHuseyin * [...] ORD ERABLES Final Result Performing Organization Address [facility] de Phone Number ARIA * [...] Result ARIA from Last 3 Months Insurance [place] [employer] [place] ANTHEM ACCESS CHOICE ANTHEM ACCESS CHOICE Advance Directives For more information, please contact: [phone] Documents on File Type Date Recorded Patient Manufacturing Development Engineer Expl anation ADVANCE DIRECTIVE 09/18/2024 5:36 PM P[employer] Care Teams Media Professional Relationship Specialty Start Date End Date Keegan Arrington MD [address] [place] [address] PCP - General Internal Medicine 11/07/23 Terrell Ramos MD [address] [facility] [address] [place] [address] Radiation Oncologist Radiation Oncology 04/23/24
--- OUTSIDE RECORDS SUMMARY | 2024-09-19 19:17 | XMS_ITS | Clinical Summary ---
Author Organization [facility] Address [address] [place] [address] Care Team Providers Care Gate Cutter Name Role Phone Keegan Arrington MD Primary Care Provider Social History Tobacco Use Types Packs/Day Years [...] patient's age to complete this topic Insurance [facility] Care Teams Gate Cutter Relationship Specialty Start Date End Date Keegan Arrington MD [address] [place] [address] PCP - General INTERNAL MEDICINE 07/13/22
--- OUTSIDE RECORDS SUMMARY | 2024-09-19 19:17 | XMS_ITS | Clinical Summary ---
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
--- OUTSIDE RECORDS SUMMARY | 2024-09-19 19:17 | XMS_ITS | Referral Summary ---
Author Organization [facility] Medical Office Building B Address [address] [place] [address] Care Team Providers Care Emergency Medical Service Manager Name Role Phone Keegan Arrington MD Primary Care Provider + [phone] Terrell Ramos MD Unavailable [phone] Encounters Date Type Department Care Team Description 09/19/2024 Documentation Orthopaedic Surgery Marika Chavez MD 09/16/2024 9:00 AM CDT - 09/16/2024 11:15 AM CDT Surgery [facility] Surgery at [facility] [address] [place] [address] David Casey MD RIGHT SHOULDER ARTHROSCOPIC ROTATOR CUFF REPAIR 09/16/2024 8:55 AM CDT Anesthesia Event [facility] Surgery at [facility] [address] [place] [address] Rony Tamez MD Gangloff, Kerry Marie, NP 09/16/2024 7:51 AM CDT - 09/16/2024 11:49 AM CDT Hospital Encounter [facility] Surgery at [facility] [address] [place] [address] David Casey MD Traumatic complete tear of right rotator cuff, sequela (Primary Dx) Discharge Disposition: Discharge to home or self care 09/12/2024 Telephone [facility] Orthopaedic Surgery [address] [facility] 1st Floor [address] [place] [address] David Casey MD 09/05/2024 Documentation [facility] Surgery [address] [place] [address] Afia De La Torre 09/04/2024 Orders Only [facility] Orthopaedic Surgery [address] [facility] 1st Floor [address] [place] [address] David Casey MD Traumatic tear of right rotator cuff, unspecified tear extent, subsequent encounter (Primary Dx) 09/03/2024 1:48 PM CDT - 09/03/2024 11:59 PM CDT Hospital Encounter [facility] [address] [place] [address] Discharge Disposition: Discharge to home or self care 09/03/2024 1:47 PM CDT - 09/03/2024 11:59 PM CDT Hospital Encounter [facility]) [address] [place] [address] Discharge Disposition: Discharge to home or self care 09/03/2024 1:00 PM CDT Office Visit [facility] Orthopaedic Surgery [address] [facility] 1st Floor [address] [place] [address] David Casey MD Traumatic complete tear of right rotator cuff, initial encounter (Primary Dx) 08/19/2024 10:40 AM CDT Office Visit [facility] Urology [address] [facility] Medical Office Building [address] [place] [address] Rudy Gottlieb NP Erectile dysfunction following radiation therapy (Primary Dx); Peyronie's disease 08/12/2024 11:30 AM CDT Office Visit [facility] Radiation Oncology [address] [place] [address] [place] [address] Terrell Ramos MD Prostate cancer (HCC) (Primary Dx) 07/08/2024 Telephone [facility] Radiation Oncology [address] [facility] [place] [address] Crissy Lara RN 07/08/2024 Orders Only [facility] Radiation Oncology [address] [facility] [place] [address] Detnon Brown MD Prostate cancer (HCC) (Primary Dx) 07/08/2024 Orders Only [facility] Radiation Oncology [address] [facility] [place] [address] Terrell Ramos MD Prostate cancer (HCC) (Primary Dx) 07/06/2024 Telephone [facility] Radiation Oncology [address] [facility] [place] [address] Terrell Ramos MD 07/03/2024 Orders Only [facility] Radiation Oncology [address] [facility] [place] [address] Terrell Ramos MD 06/27/2024 Telephone [facility] Radiation Oncology [address] [place] [address] Crissy Lara RN 06/27/2024 Orders Only [facility] Radiation Oncology [address] [place] [address] Terrell Ramos MD 06/26/2024 Completion of Therapy [facility] Radiation Oncology [address] [place] [address] Terrell Ramos MD Prostate cancer (HCC) (Primary Dx) 06/26/2024 Orders Only RAD ONC TREATMENTS Miscellaneous, Not In File 06/26/2024 6:43 AM CDT - 06/26/2024 11:59 PM CDT Hospital Encounter [facility] Radiation Oncology [address] [facility] [place] [address] Terrell Ramos MD Discharge Disposition: Discharge to home or self care 06/24/2024 Orders Only RAD ONC TREATMENTS Miscellaneous, Not In File 06/24/2024 6:54 AM CDT - 06/24/2024 11:59 PM CDT Hospital Encounter [facility] Radiation Oncology [address] [place] [address] Terrell Ramos MD Discharge Disposition: Discharge to home or self care 06/21/2024 Orders Only [facility] Radiation Oncology [address] [place] [address] Terrell Ramos MD 06/21/2024 Orders Only [facility] Radiation Oncology [address] [place] [address] Lyric Jarquin MD 06/21/2024 Documentation [facility] Radiation Oncology [address] [place] [address] Lyric Jarquin MD 06/21/2024 Orders Only RAD ONC TREATMENTS Miscellaneous, Not In File 06/21/2024 7:35 AM CDT - 06/21/2024 11:59 PM CDT Hospital Encounter [facility] Radiation Oncology [address] [place] [address] Terrell Ramos MD Discharge Disposition: Discharge to home or self care 06/19/2024 OTV [facility] Radiation Oncology [address] [place] [address] Tammie Hall MD Prostate cancer (HCC) (Primary Dx) 06/19/2024 Orders Only RAD ONC TREATMENTS Miscellaneous, Not In File 06/19/2024 7:30 AM CDT - 06/19/2024 11:59 PM CDT Hospital Encounter [facility] Radiation Oncology [address] [facility] [place] [address] Terrell Ramos MD Discharge Disposition: Discharge to home or self care from Last 3 Months Allergies Active Allergy Reactions Criticality Noted Date Comments Cefuroxime Stomach upset Low 01/25/2024 Morphine Nausea & Vomiting Low 08/26/2004 Oxycodone Nausea & Vomiting Low 09/19/2024 Medications Breo Ellipta 200-25 mcg/dose diskus inhalerIndication s:Maintenance Therapy for Asthma Inhale 2 puffs deposit refund clerk before breakfast 10/31/19 24 Active albuterol HFA [...] 04/01/2021 Assessment & Plan (04/11/2021 2:57 PM BEHAVIORAL ANALYST): Oral candidiasis, may have yogurt with activated cultures, will start him on nystatin swish and spit 500 1000 unit per 5 cc 1 cc swish and spit least 3 times a day for 7-10 days. Requests that he use a mild tooth paste, nothing with meera control or cecil at this time. Assessment & Plan (04/03/2021 9:55 PM BEHAVIORAL ANALYST): Oral Nystatin Swish and Spit. 4 times a day. Plain tooth paste, soft tooth brush Medication reviewed with patient and use. Patient states understands. Uncomplicated asthma 03/31/2021 Assessment & Plan (04/11/2021 2:42 PM BEHAVIORAL ANALYST): Continue with medication as ordered. No refills are needed at this time. States has been doing well with asthma. Note usually has more problems in the springtime. The see specialist in regards to this event. Assessment & Plan (03/31/2021 10:22 PM BEHAVIORAL ANALYST): States has problems with asthma, which is intermittent and uncomplicated. Used Advair Diskus 250-50 for flairs. Also takes some OTC meds for allergies as needed. No has never smoked. Right upper quadrant pain 03/29/2021 Assessment & Plan (04/11/2021 2:54 PM BEHAVIORAL ANALYST): At this time will set up for [...] day. Assessment & Plan (03/31/2021 10:24 PM BEHAVIORAL ANALYST): States he has had some pain in [...] on file Legal Sex Male 1:03 PM BEHAVIORAL ANALYST Gender Identity Not on file Sexual Orientation [...] on file Medical Devices Implanted Type Area Bond Underwriter Device Identifier Shelf Expiration Date Model / Serial / Lot [employer] Suture Andrews Triple Loaded Knotless Fibertak 2.6mm Ar-3633sp - [id number] Implanted:Qty: 1 on 09/16/2024 by David Casey MD at [facility] [employer] [id number] 02/19/2029 AR-3633SP / / [id number] [employer] Swivelock C 4.75mm 19.1mm Closed Eyelet Vent Andrews Suture Ar-2324bcc - [id number] Implanted:Qty: 1 on 09/16/2024 by David Casey MD at [facility] [employer] [id number] 06/19/2028 AR-2324BC C / / [id number] Procedures Procedure Name Priority Date/Time Associated Diagnosis Comments GA AN PROCEDURE PLACEHOLDER Routine 09/16/2024 10:54 AM CDT GA AN PROCEDURE PLACEHOLDER Routine 09/16/2024 10:53 AM CDT BW IP ANE LDA PERIPHERAL NERVE CATHETER Routine 09/16/2024 10:53 AM CDT GA AN PROCEDURE PLACEHOLDER Routine 09/16/2024 9:18 AM CDT GA AN ELECTIVE ENDOTRACHEAL AIRWAY Routine 09/16/2024 9:18 [...] CDT from Last 3 Months Results * GA AN PROCEDURE PLACEHOLDER (09/16/2024 10:54 AM CDT) [...] BW IP ANE LDA PERIPHERAL NERVE CATHETER, GA AN PROCEDURE PLACEHOLDER (09/16/2024 10:53 AM CDT) [...] MD ANESTHESIA ORDERABLES Final Res ult * GA AN ELECTIVE ENDOTRACHEAL AIRWAY, GA AN PROCEDURE PLACEHOLDER (09/16/2024 9:18 AM CDT) [...] Outside Reference (09/03/2024 1:48 PM CDT) Impressions [facility] - 09/03/2024 1:48 PM CDT These images are for Reference purposes only and have not been reviewed by [facility]. There will be no report generated by a [facility] Radiologist. Narrative RAD_PACS_[facility] - 09/03/2024 1:48 PM CDT EXAMINATION: Images For Reference Purposes Only David Casey MD IMG XR PROCEDURES Fin al Result Performing Organization Address [facility] Co de Phone Number RAD_P[facility] * MSK MR Outside Reference (09/03/2024 1:47 PM CDT) Impressions [facility] - 09/03/2024 1:47 PM CDT These images are for Reference purposes only and have not been reviewed by [facility]. There will be no report generated by a [facility] Radiologist. Narrative [facility] - 09/03/2024 1:47 PM CDT EXAMINATION: Images For Reference Purposes Only David Casey MD IMG MRI PROCEDURES Fi nal Result Performing Organization Address [facility] de Phone Number [facility]_P[facility] * (ABNORMAL) PSA, total and free (08/05/2024 2:24 PM CDT) PSA 4.3(H) < OR = 4.0 ng/mL [facility] Harshil PSA, free 0.3 ng/mL [facility] Hasrhil PSA, free 7(L) >25 % (calc) [facility] [...] 30 93 9 (3)Catalona et al.:JULIEN 277: 7756-2368 (1996) (4)Catalona et al.:JULIEN 279: 5820-0972 (1997) (x)These estimates vary with age, ethnicity, [...] 2:24 PM CDT 08/05/2024 2:25 PM CDT [facility] - 08/07/2024 3:08 PM CDT FASTING:NO FASTING: NO Terrell Ramos MD LAB BLOOD ORDERABLES F inal Result [facility] [address] [place] [address] * RAD ONC ARIA SESSION SUMMARY (06/26/2024 [...] Result CHIKI from Last 3 Months Insurance [employer] [place] [facility] ANTH ACCESS CHOICE Advance Directives For more information, please contact: [phone] Documents on File Type Date Recorded Patient Produce Sorter Expl anation ADVANCE DIRECTIVE 09/18/2024 5:36 PM POWER [employer] Care Teams Emergency Medical Service Manager Relationship Specialty Start Date End Date Keegan Arrington MD [address] [place] [address] PCP - General Internal Medicine 11/07/23 Terrell Ramos MD [address] [facility] [address] [place] [address] Radiation Oncologist Radiation Oncology 04/23/24
--- OUTSIDE RECORDS SUMMARY | 2024-09-19 19:17 | XMS_ITS | Encounter Summary ---
Author Organization [employer] Address 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
--- OUTSIDE RECORDS SUMMARY | 2024-09-19 19:17 | XMS_ITS ---
[facility] Address [address] [place] [address] Care Team Providers Care Market Consultant Name Role Phone Keegan Arrington MD Primary Care Provider + [phone] Terrell Ramos MD Unavailable [phone] Active Problems Problem Noted Date Diagnosed Date Traumatic tear of right rotator cuff 09/04/2024 Prostate cancer 04/23/2024 Cancer Staging:Clinical stage from 02/01/2024:Stage IIB(cT2a, cN0, cM0, PSA: 9.6, Grade Group: 2) - Signed by Terrell Ramos MD on 04/23/2024 Elevated PSA 01/25/2024 Oral candidiasis 04/01/2021 Assessment & Plan (04/11/2021 2:57 PM UNDERLINER): Oral candidiasis, may have yogurt with activated cultures, will start him on nystatin swish and spit 500 1000 unit per 5 cc 1 cc swish and spit least 3 times a day for 7-10 days. Requests that he use a mild tooth paste, nothing with meera control or cecil at this time. Assessment & Plan (04/03/2021 9:55 PM UNDERLINER): Oral Nystatin Swish and Spit. 4 times a day. Plain tooth paste, soft tooth brush Medication reviewed with patient and use. Patient states understands. Uncomplicated asthma 03/31/2021 Assessment & Plan (04/11/2021 2:42 PM UNDERLINER): Continue with medication as ordered. No refills are needed at this time. States has been doing well with asthma. Note usually has more problems in the springtime. The see specialist in regards to this event. Assessment & Plan (03/31/2021 10:22 PM UNDERLINER): States has problems with asthma, which is intermittent and uncomplicated. Used Advair Diskus 250-50 for flairs. Also takes some OTC meds for allergies as needed. No has never smoked. Right upper quadrant pain 03/29/2021 Assessment & Plan (04/11/2021 2:54 PM UNDERLINER): At this time will set up for [...] day. Assessment & Plan (03/31/2021 10:24 PM UNDERLINER): States he has had some pain in [...]
--- OUTSIDE RECORDS SUMMARY | 2024-09-19 19:17 | XMS_ITS | Encounter Summary ---
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
[2024-09-19 19:20] VITALS: O2SAT 99
[2024-09-19] MEDS: LORazepam INJ (*CRX) 2 MG/ML VIAL 1 MG IV PUSH (19:25)
[2024-09-19 19:30] VITALS: BP 201/109; PULSE 125; RESP 22; O2SAT 98
--- NOTE | 2024-09-19 19:47 | PC.NURSE ---
PATIENT APPEARS TO BE SLEEPING. MONITOR IN PLACE FOR VITAL SIGNS. RESP EVEN AND UNLABORED.
[2024-09-19 20:00] VITALS: BP 145/94; PULSE 105; RESP 18; O2SAT 96
[2024-09-19 20:31] VITALS: BP 146/94; PULSE 92; RESP 18; O2SAT 98
== END 2024-09-19 20:56 | disposition home or self-care (01) ==
PROVIDERS: Emergency Provider Emergency Medicine; PCP Internal Medicine
DX: R11.2 Nausea with vomiting, unspecified (principal); T40.2X5A Adverse effect of other opioids, initial encounter; Z79.891 Long term (current) use of opiate analgesic; Z79.899 Other long term (current) drug therapy
CPT/HCPCS: 96361; 96374; 96375; 99284; J1200; J1885; J2060; J2765; J7030